=== PATIENT | female | born 1950 | race Caucasian/White ===

== ENCOUNTER → 2017-09-16 | Outpatient (CLI) | payer OTHER ==
[2016-02-01 13:27] VITALS: BP 108/58
[~2017-09-16] MED LIST: NS 100 ML IV 100 ML IV ONE
[2017-09-16 10:59] LABS: CREATININE 0.83 mg/dL (0.55-1.02)
--- NOTE | 2017-09-16 13:23 | CT ---
Indication: Weight loss, smoking history, and COPD Exam: CT chest with contrast. Technique: Axial spiral images were obtained from the level above the clavicles through the adrenals after administration of IV contrast. Automated dose control was utilized. Findings: The thyroid gland is unremarkable. There is moderate calcified plaque throughout the aorta with minimal dilatation of the ascending aorta measuring up to 3.2 cm. There is no dissection. The pu lmonary arteries are well opacified with no filling defects. There is no mediastinal mass or adenopat hy. There are small calcifications scattered in the gallbladder. The adrenals are normal . There is a 5 mm cyst in the right lobe of liver . There are partially visualized aortoiliac stents in place . T here is mild pleural thickening and scarring along the apices. The lungs are hyperinflated with mild linear densities along the lung bases anteriorly and posteriorly. There is a 3 mm subpleural nodule a long the left lower lobe posteriorly on image 54 of series 5. The bones are intact. Impression: 3 mm subpleural nodule left lower lobe . Suggest follow-up in 1 year, if there is no history of under lying neoplasm. Mild hyperinflation is mild biapical pleural thickening and scarring and mild linear scarring along t he lung bases with no acute infiltrate or effusion. Probable cholelithiasis. Moderate atherosclerotic aorta with mild aneurysmal dilatation of the ascending aorta, suggest follow -up to assure stability. Reported By:
== END ==
LOC: RAD 10:32
PROVIDERS: ATTEND Internal Medicine
DX: R63.4 Abnormal weight loss (principal); J43.8 Other emphysema
CPT/HCPCS: 36415; 71260; 82565; 84520; A4222

== ENCOUNTER 2019-06-20 11:24 | Inpatient (IN) ==
[2019-06-20 11:40] VITALS: BMI 20.4
[2019-06-20] MEDS ORDERED: DUONEB 0.5 MG/3 MG (3 mL) NEB ONE ×2 (11:43→12:04)
[2019-06-20] MEDS ORDERED: SOLU-Medrol 125 MG VIAL ONE (11:44)
[2019-06-20] MEDS ORDERED: SOLU-Medrol 125 MG VIAL IVP ONE (12:03)
[2019-06-20] MEDS ORDERED: NS 1000 ML 1,000 ML IV ONE (12:15)
--- NOTE | 2019-06-20 12:24 | DR.SOBA ---
HPI Time Seen Time Seen by Provider: 06/20/19 12:13 Primary Care Physician Primary Care Physician: JERALD AVALOS HPI Comment HPI Comment: pt w COPD. Has been treated for 2 weeks w steroids and ABX, w/o relief. Has nebs and INH at home. Still smokes Complaints Chief Complaint:: PT HAS CCC, SOB FOR 2 WEEKS PT PLACED ON CIPRO AND PREDNISONE ON FRIDAY , PT STATES IS GETTING WORSE, AUDIBLE WHEEZING NOTED ,BR Self Treatment fo Chief Complaint: INHAILERS , Reviewed Nurses Notes Reviewed: Yes Source History Provided: Patient Mode of Arrival Mode of Arrival: Ambulatory Timing Onset of Chief Complaint: 06/02/19 Context Onset:: At Rest History of:: Asthma and COPD; denies CHF Currently on:: Inhaled Bronchodilators and Steroids Modifying Factors Worsens:: Exertion Improves:: Nothing Associated Signs and Symptoms Associated Signs and Symptoms: Wheeze and Cough; denies Fever, Hemoptysis and Chest Pain If Cough Cough: Clear PMH PMH Past Medical History: Yes Past Medical History: COPD Past Medical History Comment: COPD, SVT, Past Surgical History: Yes Past Surgical History Comment: STENTS aorta and iliacs, Family History History of Family Medical Conditions: No Social History Does patient currently use any type of tobacco product: Yes Have you used tobacco products in the last 12 months: Yes Type of Tobacco Use: Cigarettes How many years tobacco product used: 50 Does any household member use tobacco: No Alcohol Use: None Do you use any recreational Drugs:: No Lives With: Family Lives Where: Home infectious screening In the last 2 months have you had wt loss of >10#?: NO Have you had fever, night sweats or hemotysis?: No Have you traveled outside the country in the last 6 months?: No Isolation: Standard ROS Review of Systems Constitutional: negative Chills and Fever ENTM: negative Nose Congestion and Throat Pain Respiratoy: See HPI, Productive Cough, Short of Breath and Wheezing; negative Orthopnea and Hemoptysis Cardiovascular: No Symptoms Reported Gastrointestinal/Abdominal: No Symptoms Reported; negative Nausea and Vomiting Neurological: No Symptoms Reported Musculoskeletal: No Symptoms Reported Integumentary: No Symptoms Reported; negative Rash All Other Systems: Reviewed and Negative PE Vital Signs Vitals: Temperature 97.9 F Pulse Rate 90 Respiratory Rate 28 Blood Pressure 158/58 O2 Sat by Pulse Oximetry 96 General Limitations: No Limitations General Appearance: Alert and In Distress (leaning forward, dyspneic. Able to speak in full sentences) Eyes Eye exam: EOMI; negative Scleral Icterus ENT ENT Exam: Mucous Membranes Moist Neck Neck Exam: Full ROM Chest Chest Inspection: Symmetric Chest Wall Rise Respiratory Respiratory Exam: Bilateral: Wheezing, Upper: Wheezing and Lower: Wheezing Cardiovascular Cardiovascular Exam: Normal Rhythm and Tachycardia Extremities Extremities Exam: Full ROM Neurologic Neurological Exam: Alert Psychiatric Psychiatric Exam: Normal Affect and Normal Mood Skin Skin Exam: Warm and Normal Color MDM Differential Diagnosis Differential Diagnosis: Bronchitis, COPD and Pneumonia ROR Labs Reviewed Laboratory Results Reviewed?: Yes Result Diagrams: 06/20/19 12:15 06/20/19 12:15 Laboratory: WBC 14.0 X10^3/uL (3.6-10.0) H 06/20/19 12:15 RBC 4.50 X10^6/uL (3.5-5.4) 06/20/19 12:15 Hgb 14.4 g/dL (12.0-16.0) 06/20/19 12:15 Hct 42.3 % (36.0-47.0) 06/20/19 12:15 MCV 94.1 fL (80.0-100.0) 06/20/19 12:15 MCH 32.0 pg (27.0-34.0) 06/20/19 12:15 MCHC 34.0 g/dL (33.0-35.0) 06/20/19 12:15 RDW 13.7 % (11.6-16.5) 06/20/19 12:15 Plt Count 320 X10^3/uL (150.0-450.0) 06/20/19 12:15 MPV 7.6 fL (7.4-11.0) 06/20/19 12:15 Neut % (Auto) 87.5 % (42.0-75.0) H 06/20/19 12:15 Lymph % (Auto) 7.8 % (21.0-51.0) L 06/20/19 12:15 [place] % (Auto) 4.5 % (0.0-13.0) 06/20/19 12:15 Eos % (Auto) 0.0 % (0.9-2.9) L 06/20/19 12:15 Baso % (Auto) 0.2 % (0.2-1.0) 06/20/19 12:15 Neut # (Auto) 12.3 x10^3/uL (2.2-4.8) H 06/20/19 12:15 Lymph # (Auto) 1.1 X10^3/uL (1.3-2.9) L 06/20/19 12:15 [place] # (Auto) 0.6 x10^3/uL (0.3-0.8) 06/20/19 12:15 Eos # (Auto) 0.0 x10^3/uL (0.0-0.2) 06/20/19 12:15 Baso # (Auto) 0.0 X10^3/uL (0.0-0.1) 06/20/19 12:15 Absolute Nucleated RBC 0.0 /100WBC 06/20/19 12:15 Sodium 140 mmol/L (136-145) 06/20/19 12:15 Corrected Sodium 141 mmol/L (136-145) 06/20/19 12:15 Potassium 3.5 mmol/L (3.5-5.1) 06/20/19 12:15 Chloride 101 mmol/L (98-107) 06/20/19 12:15 Carbon Dioxide 28.7 mmol/L (21-32) 06/20/19 12:15 BUN 12 mg/dL (7-18) 06/20/19 12:15 Creatinine 0.89 mg/dL (0.55-1.02) 06/20/19 12:15 Est GFR (MDRD) Af Amer > 60 (>60) 06/20/19 12:15 Est GFR (MDRD) Non-Af > 60 (>60) 06/20/19 12:15 Glucose 125 mg/dL (65-99) H 06/20/19 12:15 Calcium 9.1 mg/dL (8.5-10.1) 06/20/19 12:15 Corrected Calcium TNP 06/20/19 12:15 Total Bilirubin 0.50 mg/dL (0.2-1.0) 06/20/19 12:15 AST 31 Units/L (15-37) 06/20/19 12:15 ALT 46 Units/L (12-78) 06/20/19 12:15 Alkaline Phosphatase 68 Units/L (46-116) 06/20/19 12:15 Total Protein 7.3 g/dL (6.4-8.2) 06/20/19 12:15 Albumin 4.0 g/dL (3.4-5.0) 06/20/19 12:15 Globulin 3.3 g/dL (2.5-4.5) 06/20/19 12:15 Albumin/Globulin Ratio 1.2 Ratio (1.1-2.1) 06/20/19 12:15 XRAY XRAY Interpreted by: Self XRAY Findings: COPD nothing acute Opioid Opioid Risk Tool Age (Alexis box if 16-45): No History of Preadolescent Sexual Abuse: No Total: 0 Total Score Risk Category: Low Risk Copyright: William LIEBERMAN predicting aberrant behaviors ADDITIONAL NOTES Additional Notes Additional Notes: pt placed in observation for COPD exacerbation, acute bronchitis
[2019-06-20 12:27] LABS: BASOPHILS % (AUTO) 0.2 % (0.2-1.0); HEMATOCRIT 42.3 % (36.0-47.0); HEMOGLOBIN 14.4 g/dL (12.0-16.0); LYMPHOCYTES # (AUTO) 1.1 X10^3/uL (1.3-2.9); LYMPHOCYTES % (AUTO) 7.8 % (21.0-51.0); MEAN CORPUSCULAR VOLUME 94.1 fL (80.0-100.0); MEAN PLATELET VOLUME 7.6 fL (7.4-11.0); MONOCYTES # (AUTO) 0.6 x10^3/uL (0.3-0.8); MONOCYTES % (AUTO) 4.5 % (0.0-13.0); NEUTROPHILS # (AUTO) 12.3 x10^3/uL (2.2-4.8); NEUTROPHILS % (AUTO) 87.5 % (42.0-75.0); PLATELET COUNT 320 X10^3/uL (150.0-450.0); RED CELL DISTRIBUTION WIDTH 13.7 % (11.6-16.5)
[2019-06-20 12:40] LABS: ALANINE AMINOTRANSFERASE 46 Units/L (12-78); ALKALINE PHOSPHATASE 68 Units/L (46-116); ASPARTATE AMINO TRANSFERASE 31 Units/L (15-37); BLOOD UREA NITROGEN 12 mg/dL (7-18); CALCIUM 9.1 mg/dL (8.5-10.1); CARBON DIOXIDE 28.7 mmol/L (21-32); CHLORIDE 101 mmol/L (98-107); COR NA(FOR HYPERGLY) 141 mmol/L (136-145); CREATININE 0.89 mg/dL (0.55-1.02); SODIUM 140 mmol/L (136-145); TOTAL PROTEIN 7.3 g/dL (6.4-8.2); eGFR NON BLACK RACES > 60 (>60)
[2019-06-20] MEDS ORDERED: NS 1000 ML 1,000 ML ONE (13:09)
[2019-06-20] MEDS ORDERED: LEVAQUIN PREMIX IV 750 MG 750 MG/150 ML BAG IV ONE ×2 (13:30→13:33)
--- NOTE | 2019-06-20 13:31 | RAD ---
HISTORYCCC, SOB FOR 2 WEEKS, AUDIBLE WHEEZINGSTUDYCHEST, PA/LAT ADULTCOMPARISONNone availableFINDINGSThe trachea is midline. The cardiac silhouette is unremarkable . The lungs demonstrate interstitial coarsening, upper lobe predominant increased lucency and hyperexpansion which are consistent with changes associated with COPD.The lungs are clear without focal infiltrate or effusion. The bony thorax is unremarkable.[ ]IMPRESSIONCOPD without acute cardiopulmonary abnormality.Electronically signed by: SAMMY HART (Jun 20, 2019 13:30:27)
[2019-06-20] MEDS: SOLU-Medrol 125 MG VIAL IVP SCH ×2 (14:38→22:00)
[2019-06-20] MEDS: NS 1000 ML 1,000 ML IV SCH ×2 (14:39→22:00)
[2019-06-20] MEDS ORDERED: FORTAZ or TAZICEF VIAL INJ ONE (14:47)
[2019-06-20] MEDS ORDERED: NS 100 ML IV + SPIKE MINIBAG* 100 ML IV ONE (14:48)
[2019-06-20] MEDS: FORTAZ or TAZICEF VIAL INJ 1 G in NS 100 ML IV + SPIKE MINIBAG* 100 ML IV SCH ×3 (14:49→22:00)
[2019-06-20] MEDS ORDERED: K-RIDER 10 MEQ/NS 100 ML 10 MEQ/100 ML BAG IV PRN (15:24)
[2019-06-20] MEDS ORDERED: POTASSIUM CHL 60 MEQ/NS 0.45% 500 ML IV PRN (15:24)
[2019-06-20] MEDS ORDERED: POTASSIUM CHLORIDE LIQ 20 MEQ UDC PO PRN (15:24)
[2019-06-20] MEDS ORDERED: POTASSIUM CHL 40 MEQ/NS 0.45% 500 ML IV PRN (15:24)
[2019-06-20] MEDS ORDERED: MICRO K EXTEN CAP 10 MEQ PO PRN (15:24)
[2019-06-20] MEDS ORDERED: K-DUR TAB 20 MEQ PO ONE (15:38)
[2019-06-20] MEDS: K-DUR TAB 20 MEQ PO PRN (15:39)
[2019-06-20] MEDS: DUONEB 0.5 MG/3 MG (3 mL) NEB SCH ×2 (17:00→20:49)
[2019-06-20] MEDS ORDERED: DUONEB 0.5 MG/3 MG (3 mL) NEB SCH (18:00)
[2019-06-20] MEDS: PULMICORT NEB TX 0.5 MG NEB SCH (20:49)
[2019-06-21] MEDS: DUONEB 0.5 MG/3 MG (3 mL) NEB SCH ×7 (00:40→20:35)
[2019-06-21] MEDS: FORTAZ or TAZICEF VIAL INJ 1 G in NS 100 ML IV + SPIKE MINIBAG* 100 ML IV SCH ×3 (05:07→22:00)
[2019-06-21] MEDS: NS 1000 ML 1,000 ML IV SCH ×2 (05:07→17:27)
[2019-06-21] MEDS: SOLU-Medrol 125 MG VIAL IVP SCH ×3 (05:07→22:00)
[2019-06-21 05:46] LABS: BASOPHILS % (AUTO) 0.1 % (0.2-1.0); HEMATOCRIT 37.2 % (36.0-47.0); HEMOGLOBIN 12.8 g/dL (12.0-16.0); LYMPHOCYTES % (AUTO) 9.1 % (21.0-51.0); MEAN CORPUSCULAR HEMOGLOBIN 32.4 pg (27.0-34.0); MEAN CORPUSCULAR HGB CONC 34.4 g/dL (33.0-35.0); MEAN CORPUSCULAR VOLUME 94.2 fL (80.0-100.0); MEAN PLATELET VOLUME 7.8 fL (7.4-11.0); MONOCYTES # (AUTO) 0.4 x10^3/uL (0.3-0.8); MONOCYTES % (AUTO) 4.1 % (0.0-13.0); NEUTROPHILS # (AUTO) 9.4 x10^3/uL (2.2-4.8); NEUTROPHILS % (AUTO) 86.7 % (42.0-75.0); PLATELET COUNT 258 X10^3/uL (150.0-450.0); RED BLOOD COUNT 3.95 X10^6/uL (3.5-5.4); RED CELL DISTRIBUTION WIDTH 13.8 % (11.6-16.5); WHITE BLOOD COUNT 10.8 X10^3/uL (3.6-10.0)
[2019-06-21 05:56] LABS: ALANINE AMINOTRANSFERASE 46 Units/L (12-78); ALBUMIN 3.2 g/dL (3.4-5.0); ALKALINE PHOSPHATASE 61 Units/L (46-116); ASPARTATE AMINO TRANSFERASE 29 Units/L (15-37); BLOOD UREA NITROGEN 13 mg/dL (7-18); CALCIUM 8.4 mg/dL (8.5-10.1); CHLORIDE 104 mmol/L (98-107); COR NA(FOR HYPERGLY) 139 mmol/L (136-145); CREATININE 0.82 mg/dL (0.55-1.02); SODIUM 138 mmol/L (136-145); TOTAL PROTEIN 6.2 g/dL (6.4-8.2); eGFR NON BLACK RACES > 60 (>60)
[2019-06-21] MEDS: PULMICORT NEB TX 0.5 MG NEB SCH ×2 (08:15→20:35)
[2019-06-21] MEDS: LOVENOX INJ 40 MG SYR SC SCH (08:47)
[2019-06-21] MEDS: K-DUR TAB 20 MEQ PO PRN (08:47)
[2019-06-21] MEDS: LEVAQUIN PREMIX IV 750 MG 750 MG/150 ML BAG IV SCH (08:47)
--- NOTE | 2019-06-21 09:08 | DR.H&P ---
H&P - History & Physical for Day of: H&P Date: 06/20/19 - Chief Complaint Chief Complaint: COUGH, COLD, CONGESTION, SOB - History of Present Illness History of Present Illness: IS A 69 YEAR OLD PATIENT OF OURS WHO PRESENTED TO THE ER WITH COMPLAINTS OF COUGH, COLD, CONGESTION, AND SHORTNESS OF BREATH X TWO WEEKS. SHE REPORTS BEING TREATED WITH CIPRO 500MG PO BID, NEBULIZER TREATMENTS, AND PREDNISONE SINCE 06/14/19. SHE DOES SMOKE CIGARETTES. SHE HAS A PMH OF COPD AND ASTHMA. ON EXAMINATION, THERE IS AUDIBLE WHEEZING NOTED. ON ARRIVAL, VITALS WERE 97.9-111-20-92%RA-154/72. LABS WERE OBTAINED. ABNORMAL LAB VALUES INCLUDE THE FOLLOWING: WBC 14.0, GLUCOSE 125. A SPUTUM CULTURE WAS SET UP. A CHEST XRAY WAS OBTAINED AND REVEALED: COPD WITHOUT ACUTE CARDIOPULMONARY ABNORMALITY. SHE WAS GIVEN A NORMAL SALINE BOLUS, LEVAQUIN 750MG IV X 1, SOLU- MEDROL 125MG IV X 1, AND A DUONEB X 1. SHE WAS ADMITTED TO THE HOSPITAL FOR FURTHER EVALUATION AND TREATMENT OF COPD EXACERBATION WITH ACUTE BRONCHITIS. SHE WAS STARTED ON NORMAL SALINE AT 125ML/HR, LEVAQUIN 750MG IV DAILY, FORTAZ 1G IV DAILY, LOVENOX 40MG SC DAILY, RESPIRATORY TREATEMENTS, AN SOLU-MEDROL 80MG IV Q8H. OTHERWISE, WE PLAN TO FOLLOW UP WITH AM LABS AND CHEST XRAY AND CONTINUE TO MONITOR. - Past Medical History Past Medical History: COPD - Past Surgical History Surgical History: Angioplasty/Stents - Social History Does patient currently use any type of tobacco product: Yes Have you used tobacco products in the last 12 months: Yes Type of Tobacco Use: Cigarettes How many years tobacco product used: 50 Does any household member use tobacco: No Alcohol Use: None Drug Use: None Prescription drug monitoring program results: PDMP was not reviewed - Medications Home Medications: No Known Drug Allergies Allergy (Verified 06/20/19 11:35) CONTINUE taking the following medications albuterol sulfate 1 inh INHALATION PRN PRN 06/20/19 [History] atorvastatin 40 mg PO DAILY 06/20/19 [History] budesonide-formoterol [Symbicort] 1 inh INHALATION BID 06/20/19 [History] ciprofloxacin HCl 500 mg PO BID 06/20/19 [History] nifedipine 30 mg PO DAILY 06/20/19 [History] prednisone 10 mg PO DIRECTED 06/20/19 [History] - Review of Systems Constitutional: No Symptoms Reported Eyes: No Symptoms Reported ENT: No Symptoms Reported Respiratory: See HPI, Cough, Shortness of Breath, SOB with Excertion, Wheezing Cardiovascular: No Symptoms Reported Gastrointestinal: No Symptoms Reported Genitourinary: No Symptoms Reported Musculoskeletal: No Symptoms Reported Skin: No Symptoms Reported Neurological: No Symptoms Reported - Physical Exam Vital Signs: Temperature 97.9 F Pulse Rate [Left Brachial] 74 Pulse Rate 92 Respiratory Rate 18 Blood Pressure [Left Arm] 143/70 Blood Pressure 158/58 O2 Sat by Pulse Oximetry 96 Oriented: Normal Eyes: Normal Ear: Normal Nose: Normal Throat: Normal Respiratory: Wheezes Throughout Cardiovascular: Tachycardia : Normal Auscultation: Bowel Sounds: Normal Palpation: Normal Tenderness: Normal Skin: Normal Musculoskeletal: Normal Psychiatric: Normal Mood Description: Calm Affect: Normal Speech Pattern: Clear - Assessment/Plan (1) COPD exacerbation Status: Acute Plan: ADMIT, NORMAL SALINE AT 125ML/HR, LEVAQUIN 750MG IV DAILY, FORTAZ 1G IV DAILY, LOVENOX 40MG SC DAILY, RESPIRATORY TREATEMENTS, AND SOLU-MEDROL 80MG IV Q8H, CONTINUE TO MONITOR LABS AND CHEST XRAY (2) Acute bronchitis Qualifiers: Bronchitis organism: unspecified organism Qualified Code(s): J20.9 - Acute bronchitis, unspecified Status: Acute - Allergies Allergies/Adverse Reactions: Allergies Allergy/AdvReac Type Severity Reaction Status Date / Time No Known Drug Allergies Allergy Verified 06/20/19 11:35
[2019-06-21 10:26] LABS: ABG ALLEN TEST POS; ABG BASE EXCESS -0.4 mmol/L (-2.0-2.0); ABG HCO3 22.8 mmol/L (22-26)
[2019-06-21] MEDS: DIFLUCAN 200 MG IV PREMIX* 200 MG/100 ML BAG IV SCH (11:46)
[2019-06-21] MEDS ORDERED: ACCUNEB 1.25 MG NEBULE NEB PRN (21:24)
[2019-06-22] MEDS: DUONEB 0.5 MG/3 MG (3 mL) NEB SCH ×6 (00:45→20:50)
[2019-06-22] MEDS: NS 1000 ML 1,000 ML IV SCH ×4 (01:52→23:00)
[2019-06-22] MEDS: SOLU-Medrol 125 MG VIAL IVP SCH ×3 (06:08→22:00)
[2019-06-22] MEDS: FORTAZ or TAZICEF VIAL INJ 1 G in NS 100 ML IV + SPIKE MINIBAG* 100 ML IV SCH ×3 (06:08→22:00)
[2019-06-22 06:30] LABS: BASOPHILS % (AUTO) 0.1 % (0.2-1.0); HEMATOCRIT 38.2 % (36.0-47.0); HEMOGLOBIN 12.9 g/dL (12.0-16.0); LYMPHOCYTES # (AUTO) 0.9 X10^3/uL (1.3-2.9); LYMPHOCYTES % (AUTO) 7.4 % (21.0-51.0); MEAN CORPUSCULAR HGB CONC 33.7 g/dL (33.0-35.0); MEAN CORPUSCULAR VOLUME 94.8 fL (80.0-100.0); MEAN PLATELET VOLUME 7.3 fL (7.4-11.0); MONOCYTES # (AUTO) 0.6 x10^3/uL (0.3-0.8); MONOCYTES % (AUTO) 4.5 % (0.0-13.0); NEUTROPHILS # (AUTO) 11.1 x10^3/uL (2.2-4.8); PLATELET COUNT 295 X10^3/uL (150.0-450.0); RED BLOOD COUNT 4.03 X10^6/uL (3.5-5.4); RED CELL DISTRIBUTION WIDTH 13.3 % (11.6-16.5); WHITE BLOOD COUNT 12.7 X10^3/uL (3.6-10.0)
[2019-06-22 06:39] LABS: ALANINE AMINOTRANSFERASE 43 Units/L (12-78); ALBUMIN 3.1 g/dL (3.4-5.0); ALKALINE PHOSPHATASE 82 Units/L (46-116); ASPARTATE AMINO TRANSFERASE 21 Units/L (15-37); BLOOD UREA NITROGEN 13 mg/dL (7-18); CALCIUM 8.1 mg/dL (8.5-10.1); CARBON DIOXIDE 28.2 mmol/L (21-32); CHLORIDE 106 mmol/L (98-107); COR CA(FOR HYPOALB) 8.8 mg/dL (8.5-10.1); COR NA(FOR HYPERGLY) 143 mmol/L (136-145); CREATININE 0.85 mg/dL (0.55-1.02); SODIUM 141 mmol/L (136-145); TOTAL PROTEIN 5.9 g/dL (6.4-8.2); eGFR NON BLACK RACES > 60 (>60)
--- NOTE | 2019-06-22 07:26 | CT ---
HISTORYCough, shortness of breath, COPDSTUDYCHEST W/O CONTechnique: Axial noncontrast images with coronal and sagittal reformats. Dose reduction procedures were used with mA/kv adjusted for body size. This examination is limited due to the lack of intravenous contrast. The examination was performed in this manner at the sole discretion of the ordering caregiver.[id number] of the mediastinum demonstrated no evidence for med iastinal masses, enlarged mediastinal or enlarged hilar adenopathy. Atherosclerotic change is presen t in the thoracic aorta without significant dilatation. No pleural effusions are identified. No caroline st wall or axillary abnormality is identified. Those portions of the upper abdominal organs visualiz ed were within normal limits to the limitations of an unenhanced examination with the exception of ch olelithiasis. Examination of the lung gan demonstrated hyperinflation to be present. There are s ome changes of centrilobular emphysema present. The previously noted 3 mm left lower lobe pulmonary nodule is unchanged. No new nodules are identified. No alveolar infiltrates, areas of consolidation , masses, bronchiectasis, or peribronchial thickening identified.IMPRESSIONHyperinflation with change s of centrilobular emphysemaStable 3 mm left lower lobe pulmonary noduleCholelithiasisElectronically signed by: RICCI BROWN (Jun 22, 2019 07:24:43)
[2019-06-22] MEDS: PULMICORT NEB TX 0.5 MG NEB SCH ×2 (08:53→20:50)
[2019-06-22] MEDS: LOVENOX INJ 40 MG SYR SC SCH (09:36)
[2019-06-22] MEDS: DIFLUCAN 200 MG IV PREMIX* 200 MG/100 ML BAG IV SCH (09:37)
[2019-06-22] MEDS: LEVAQUIN PREMIX IV 750 MG 750 MG/150 ML BAG IV SCH (09:37)
[2019-06-22] MEDS ORDERED: PLAVIX PO SCH (11:00)
[2019-06-22] MEDS ORDERED: PROCARDIA XL PO SCH (11:00)
[2019-06-22] MEDS ORDERED: LIPITOR TAB 40 MG PO SCH (11:00)
[2019-06-22] MEDS: VALIUM PO SCH ×2 (11:20→22:00)
[2019-06-22] MEDS: THEO-DUR TAB 200 MG PO SCH ×2 (11:20→22:00)
--- NOTE | 2019-06-22 20:04 | PCM.PROG ---
Progress Note - Progress Note for Day of Date of Exam: 06/22/19 - Subjective Subjective: IS BEING TREATED FOR COPD EXACERBATION WITH ACUTE BRONCHITIS. TODAY, SHE IS ALERT AND ORIENTED, LYING IN BED ON MORNING ROUNDS. SHE CONTINUES WITH MODERATE SHORTNESS OF BREATH AND COUGH. ON EXAMINATION, HEART IS REGULAR IN RATE AND RHYTHM. BILATERAL LUNGS ARE NOTED WITH SCATTERED WHEEZING THROUGHOUT. ABDOMEN IS FLAT, SOFT, AND NON-TENDER WITH NORMAL BOWEL SOUNDS NOTED IN ALL QUADRANTS. VITALS THIS MORNING ARE: 99.8-8618-98%-128/60. LABS WERE OBTAINED. ABNORMAL LAB VALUES INCLUDE THE FOLLOWING: WBC 12.7, [id number], CALCIUM 8.1, TOTAL PROTEIN 5.9, ALBUMIN 3.1. SPUTUM CULTURE REPORTS GROWTH OF GRAM NEGATIVE RODS. A CHEST CT WAS OBTAINED THIS MORNING AND REVEALED: Hyperinf lation with changes of centrilobular emphysema. Stable 3 mm left lower lobe pulmonary nodule. Cholelithiasis. SHE IS CURRENTLY RECEIVING IV FORTAZ, IV LEVAQUIN, IV DIFLUCAN, RESPIRATORY TX, LOVENOX 40MG SC DAILY, THE POTASSIUM AND MAGNESIUM PROTOCOLS, AND HOME MEDICATIONS WERE RESUMED. TODAY, WE WILL ADD SAKSHI-DUR 200MG PO Q12H AND VALIUM 5MG PO BID. OTHERWISE, WE WILL CONTINUE WITH CURRENT PLAN OF CARE TODAY. WE PLAN TO FOLLOW UP WITH AM LABS AND CONTINUE TO MONITOR. - Past Medical Family Social History Past Med/Fam/Surg Hx: No changes since H&P Allergies: Allergies No Known Drug Allergies Allergy (Verified 06/20/19 11:35) - Review of Systems ROS: No change since H&P - Vital Signs and I&O's Vital Signs: Temperature 97.9 F Pulse Rate [Right Brachial] 103 Pulse Rate [Left Brachial] 98 Pulse Rate 92 Respiratory Rate 22 Blood Pressure [Right Arm] 179/78 Blood Pressure [Left Arm] 125/60 Blood Pressure 158/58 O2 Sat by Pulse Oximetry 97 Intake and Output: Intake & Output 06/20/19 06/21/19 06/22/19 06/23/19 11:59 11:59 11:59 11:59 Intake Total 1490 / 1490 5296 / 5296 1580 / 1580 Balance 1490 / 1490 5296 / 5296 1580 / 1580 - Physical Exam Oriented: Normal Eyes: Normal Ear: Normal Nose: Normal Throat: Normal Respiratory: Generalized, Wheezes Cardiovascular: Normal : Normal Auscultation: Bowel Sounds: Normal Palpation: Normal Tenderness: Normal Skin: Normal Musculoskeletal: Normal Psychiatric: Normal Mood Description: Calm Affect: Normal Speech Pattern: Clear, Appropriate - Laboratory and Diagnostics Result Diagrams: 06/22/19 05:22 06/22/19 05:22 Labs: 06/20/19 14:56 Sputum - Expectorated Sputum Sputum Culture - Preliminary 06/20/19 14:56 Sputum - Expectorated Sputum - Final Laboratory WBC 12.7 X10^3/uL (3.6-10.0) H 06/22/19 05:22 RBC 4.03 X10^6/uL (3.5-5.4) 06/22/19 05:22 Hgb 12.9 g/dL (12.0-16.0) 06/22/19 05:22 Hct 38.2 % (36.0-47.0) 06/22/19 05:22 MCV 94.8 fL (80.0-100.0) 06/22/19 05:22 MCH 32.0 pg (27.0-34.0) 06/22/19 05:22 MCHC 33.7 g/dL (33.0-35.0) 06/22/19 05:22 RDW 13.3 % (11.6-16.5) 06/22/19 05:22 Plt Count 295 X10^3/uL (150.0-450.0) 06/22/19 05:22 MPV 7.3 fL (7.4-11.0) L 06/22/19 05:22 Neut % (Auto) 88.0 % (42.0-75.0) H 06/22/19 05:22 Lymph % (Auto) 7.4 % (21.0-51.0) L 06/22/19 05:22 [place] % (Auto) 4.5 % (0.0-13.0) 06/22/19 05:22 Eos % (Auto) 0.0 % (0.9-2.9) L 06/22/19 05:22 Baso % (Auto) 0.1 % (0.2-1.0) L 06/22/19 05:22 Neut # (Auto) 11.1 x10^3/uL (2.2-4.8) H 06/22/19 05:22 Lymph # (Auto) 0.9 X10^3/uL (1.3-2.9) L 06/22/19 05:22 [place] # (Auto) 0.6 x10^3/uL (0.3-0.8) 06/22/19 05:22 Eos # (Auto) 0.0 x10^3/uL (0.0-0.2) 06/22/19 05:22 Baso # (Auto) 0.0 X10^3/uL (0.0-0.1) 06/22/19 05:22 Absolute Nucleated RBC 0.0 /100WBC 06/22/19 05:22 Sample Site Rrad 06/21/19 10:20 ABG pH 7.460 (7.35-7.45) H 06/21/19 10:20 ABG pCO2 32.0 mmHg (35.0-45.0) L 06/21/19 10:20 ABG pO2 95.0 mmHg (80.0-100.0) 06/21/19 10:20 ABG HCO3 22.8 mmol/L (22-26) 06/21/19 10:20 ABG O2 Saturation 98.0 % (90-100) 06/21/19 10:20 ABG Base Excess -0.4 mmol/L (-2.0-2.0) 06/21/19 10:20 [place] Test Pos 06/21/19 10:20 A-a Gradient 65.0 mmHg 06/21/19 10:20 FiO2 28.0 06/21/19 10:20 Blood Gas Comments Shahab well- sd 06/21/19 10:20 Sodium 141 mmol/L (136-145) 06/22/19 05:22 Corrected Sodium 143 mmol/L (136-145) 06/22/19 05:22 Potassium 4.3 mmol/L (3.5-5.1) 06/22/19 05:22 Chloride 106 mmol/L (98-107) 06/22/19 05:22 Carbon Dioxide 28.2 mmol/L (21-32) 06/22/19 05:22 BUN 13 mg/dL (7-18) 06/22/19 05:22 Creatinine 0.85 mg/dL (0.55-1.02) 06/22/19 05:22 Est GFR (MDRD) Af Amer > 60 (>60) 06/22/19 05:22 Est GFR (MDRD) Non-Af > 60 (>60) 06/22/19 05:22 Glucose 177 mg/dL (65-99) H 06/22/19 05:22 Calcium 8.1 mg/dL (8.5-10.1) L 06/22/19 05:22 Corrected Calcium 8.8 mg/dL (8.5-10.1) 06/22/19 05:22 Magnesium 2.0 mg/dL (1.7-2.9) 06/20/19 12:15 Total Bilirubin 0.20 mg/dL (0.2-1.0) 06/22/19 05:22 AST 21 Units/L (15-37) 06/22/19 05:22 ALT 43 Units/L (12-78) 06/22/19 05:22 Alkaline Phosphatase 82 Units/L (46-116) 06/22/19 05:22 Total Protein 5.9 g/dL (6.4-8.2) L 06/22/19 05:22 Albumin 3.1 g/dL (3.4-5.0) L 06/22/19 05:22 Globulin 2.8 g/dL (2.5-4.5) 06/22/19 05:22 Albumin/Globulin Ratio 1.1 Ratio (1.1-2.1) 06/22/19 05:22 - Plan (1) COPD exacerbation Status: Acute Plan: NORMAL SALINE AT 125ML/HR, SAKSHI-DUR 200MG PO Q12H, VALIUM 5MG PO BID, LEVAQUIN 750MG IV DAILY, FORTAZ 1G IV DAILY, LOVENOX 40MG SC DAILY, RESPIRATORY TREATEMENTS, AND SOLU-MEDROL 80MG IV Q8H, CONTINUE TO MONITOR LABS AND CHEST XRAY (2) Acute bronchitis Status: Acute Qualifiers: Bronchitis organism: unspecified organism Qualified Code(s): J20.9 - Acute bronchitis, unspecified
[2019-06-22] MEDS: LIPITOR TAB 40 MG PO SCH (21:00)
[2019-06-22] MEDS: PLAVIX PO SCH (21:00)
[2019-06-22] MEDS: PROCARDIA XL PO SCH (22:00)
[2019-06-23] MEDS: DUONEB 0.5 MG/3 MG (3 mL) NEB SCH ×7 (01:04→20:25)
[2019-06-23 05:52] LABS: BASOPHILS % (AUTO) 0 % (0.2-1.0); HEMATOCRIT 37.2 % (36.0-47.0); HEMOGLOBIN 12.8 g/dL (12.0-16.0); LYMPHOCYTES # (AUTO) 0.8 X10^3/uL (1.3-2.9); MEAN CORPUSCULAR HEMOGLOBIN 32.5 pg (27.0-34.0); MEAN CORPUSCULAR HGB CONC 34.5 g/dL (33.0-35.0); MEAN CORPUSCULAR VOLUME 94.4 fL (80.0-100.0); MEAN PLATELET VOLUME 7.4 fL (7.4-11.0); MONOCYTES % (AUTO) 6.5 % (0.0-13.0); NEUTROPHILS # (AUTO) 13.7 x10^3/uL (2.2-4.8); NEUTROPHILS % (AUTO) 88.5 % (42.0-75.0); PLATELET COUNT 305 X10^3/uL (150.0-450.0); RED BLOOD COUNT 3.94 X10^6/uL (3.5-5.4); RED CELL DISTRIBUTION WIDTH 13.6 % (11.6-16.5); WHITE BLOOD COUNT 15.5 X10^3/uL (3.6-10.0)
[2019-06-23] MEDS: FORTAZ or TAZICEF VIAL INJ 1 G in NS 100 ML IV + SPIKE MINIBAG* 100 ML IV SCH ×3 (06:02→21:26)
[2019-06-23] MEDS: SOLU-Medrol 125 MG VIAL IVP SCH (06:03)
[2019-06-23] MEDS: NS 1000 ML 1,000 ML IV SCH ×4 (06:03→21:28)
[2019-06-23 06:09] LABS: ALANINE AMINOTRANSFERASE 46 Units/L (12-78); ALKALINE PHOSPHATASE 99 Units/L (46-116); ASPARTATE AMINO TRANSFERASE 23 Units/L (15-37); BLOOD UREA NITROGEN 12 mg/dL (7-18); CALCIUM 8.3 mg/dL (8.5-10.1); CARBON DIOXIDE 25.8 mmol/L (21-32); CHLORIDE 104 mmol/L (98-107); COR CA(FOR HYPOALB) 9.1 mg/dL (8.5-10.1); COR NA(FOR HYPERGLY) 140 mmol/L (136-145); CREATININE 0.74 mg/dL (0.55-1.02); SODIUM 138 mmol/L (136-145); eGFR NON BLACK RACES > 60 (>60)
[2019-06-23] MEDS: KLOR-CON PO PRN (06:24)
[2019-06-23] MEDS: DIFLUCAN 200 MG IV PREMIX* 200 MG/100 ML BAG IV SCH (09:37)
[2019-06-23] MEDS: LOVENOX INJ 40 MG SYR SC SCH (09:38)
[2019-06-23] MEDS: VALIUM PO SCH ×2 (09:39→21:25)
[2019-06-23] MEDS: THEO-DUR TAB 200 MG PO SCH ×2 (09:39→21:25)
[2019-06-23] MEDS: PULMICORT NEB TX 0.5 MG NEB SCH ×2 (09:52→20:25)
[2019-06-23] MEDS: LEVAQUIN PREMIX IV 750 MG 750 MG/150 ML BAG IV SCH (10:16)
--- NOTE | 2019-06-23 10:57 | RAD ---
HISTORYShortness of breath and coughSTUDYPortable AP chestCOMPARISONJanuary 2019FINDINGSAs before the lungs are hyperinflated and grossly clear with emphysematous changes suggested in the upper lobes. The heart and mediastinum are unremarkable. There is no edema or effusion.IMPRESSIONUnchanged COPD likely related to emphysemaElectronically signed by: LOC MILLER (Jun 23, 2019 10:55:48)
[2019-06-23] MEDS: TORADOL 30 MG VIAL IVP SCH ×2 (12:23→21:21)
[2019-06-23] MEDS: TESSALON PERLES PO SCH ×2 (14:50→21:23)
--- NOTE | 2019-06-23 19:22 | PCM.PROG ---
Progress Note - Progress Note for Day of Date of Exam: 06/23/19 - Subjective Subjective: IS BEING TREATED FOR COPD EXACERBATION WITH ACUTE BRONCHITIS. TODAY, SHE IS ALERT AND ORIENTED, LYING IN BED ON MORNING ROUNDS. SHE CONTINUES WITH SHORTNESS OF BREATH AND COUGH, BUT DOES REPORT SLIGHT IMPROVEMENT IN SYMPTOMS SINCE YESTERDAY. SHE ALSO REPORTS PAIN TO RIB AREA AND BACK WHEN SHE COUGHS. ON EXAMINATION, HEART IS REGULAR IN RATE AND RHYTHM. BILATERAL LUNGS ARE NOTED WITH SCATTERED WHEEZING THROUGHOUT. ABDOMEN IS FLAT, SOFT, AND NON-TENDER WITH NORMAL BOWEL SOUNDS NOTED IN ALL QUADRANTS. VITALS THIS MORNING ARE: 98.0-104-18-98%-183/92. LABS WERE OBTAINED. ABNORMAL LAB VALUES INCLUDE THE FOLLOWING: WBC 15.5, POTASSIUM 3.2, GLUCOSE 190, CALCIUM 8.3, TOTAL PROTEIN 6.0, ALBUMIN 3.0. SPUTUM CULTURE REPORTS GROWTH OF GRAM NEGATIVE RODS. A CHEST XRAY WAS OBTAINED AND REVEALED: Unchanged COPD likely related to emphysema. SHE IS CURRENTLY RECEIVING IV FORTAZ, IV LEVAQUIN, IV DIFLUCAN, RESPIRATORY TX, SAKSHI-DUR Q12H, VALIUM BID, LOVENOX 40MG SC DAILY, THE POTASSIUM AND MAGNESIUM PROTOCOLS, AND HOME MEDICATIONS WERE RESUMED. TODAY, WE WILL ADD TRADOL 30MG IV Q8H AND TESSALON PERLES 200MG PO Q8H. OTHERWISE, WE WILL CONTINUE WITH CURRENT PLAN OF CARE TODAY. WE PLAN TO FOLLOW UP WITH AM LABS AND CONTINUE TO MONITOR. - Past Medical Family Social History Past Med/Fam/Surg Hx: No changes since H&P Allergies: Allergies No Known Drug Allergies Allergy (Verified 06/20/19 11:35) - Review of Systems ROS: No change since H&P - Vital Signs and I&O's Vital Signs: Temperature 98 F Pulse Rate [Right Brachial] 98 Pulse Rate [Left Brachial] 98 Pulse Rate 100 Respiratory Rate 20 Blood Pressure [Right Arm] 142/69 Blood Pressure [Left Arm] 125/60 Blood Pressure 158/58 O2 Sat by Pulse Oximetry 95 Intake and Output: Intake & Output 06/21/19 06/22/19 06/23/19 06/24/19 11:59 11:59 11:59 11:59 Intake Total 1490 / 1490 5296 / 5296 4100 / 4100 1200 / 1200 Balance 1490 / 1490 5296 / 5296 4100 / 4100 1200 / 1200 - Physical Exam Oriented: Normal Eyes: Normal Ear: Normal Nose: Normal Throat: Normal Respiratory: Generalized, Wheezes Cardiovascular: Normal : Normal Auscultation: Bowel Sounds: Normal Tenderness: Normal Skin: Normal Musculoskeletal: Normal Psychiatric: Normal Mood Description: Calm Affect: Normal Speech Pattern: Clear, Appropriate - Laboratory and Diagnostics Result Diagrams: 06/23/19 05:24 06/23/19 05:24 Labs: 06/20/19 14:56 Sputum - Expectorated Sputum Sputum Culture - Preliminary 06/20/19 14:56 Sputum - Expectorated Sputum - Final Laboratory WBC 15.5 X10^3/uL (3.6-10.0) H 06/23/19 05:24 RBC 3.94 X10^6/uL (3.5-5.4) 06/23/19 05:24 Hgb 12.8 g/dL (12.0-16.0) 06/23/19 05:24 Hct 37.2 % (36.0-47.0) 06/23/19 05:24 MCV 94.4 fL (80.0-100.0) 06/23/19 05:24 MCH 32.5 pg (27.0-34.0) 06/23/19 05:24 MCHC 34.5 g/dL (33.0-35.0) 06/23/19 05:24 RDW 13.6 % (11.6-16.5) 06/23/19 05:24 Plt Count 305 X10^3/uL (150.0-450.0) 06/23/19 05:24 MPV 7.4 fL (7.4-11.0) 06/23/19 05:24 Neut % (Auto) 88.5 % (42.0-75.0) H 06/23/19 05:24 Lymph % (Auto) 5.0 % (21.0-51.0) L 06/23/19 05:24 Cass % (Auto) 6.5 % (0.0-13.0) 06/23/19 05:24 Eos % (Auto) 0.0 % (0.9-2.9) L 06/23/19 05:24 Baso % (Auto) 0 % (0.2-1.0) L 06/23/19 05:24 Neut # (Auto) 13.7 x10^3/uL (2.2-4.8) H 06/23/19 05:24 Lymph # (Auto) 0.8 X10^3/uL (1.3-2.9) L 06/23/19 05:24 Cass # (Auto) 1.0 x10^3/uL (0.3-0.8) H 06/23/19 05:24 Eos # (Auto) 0.0 x10^3/uL (0.0-0.2) 06/23/19 05:24 Baso # (Auto) 0.0 X10^3/uL (0.0-0.1) 06/23/19 05:24 Absolute Nucleated RBC 0.1 /100WBC 06/23/19 05:24 Sample Site Rrad 06/21/19 10:20 ABG pH 7.460 (7.35-7.45) H 06/21/19 10:20 ABG pCO2 32.0 mmHg (35.0-45.0) L 06/21/19 10:20 ABG pO2 95.0 mmHg (80.0-100.0) 06/21/19 10:20 ABG HCO3 22.8 mmol/L (22-26) 06/21/19 10:20 ABG O2 Saturation 98.0 % (90-100) 06/21/19 10:20 ABG Base Excess -0.4 mmol/L (-2.0-2.0) 06/21/19 10:20 Eliceo Test Pos 06/21/19 10:20 A-a Gradient 65.0 mmHg 06/21/19 10:20 FiO2 28.0 06/21/19 10:20 Blood Gas Comments Shahab well- sd 06/21/19 10:20 Sodium 138 mmol/L (136-145) 06/23/19 05:24 Corrected Sodium 140 mmol/L (136-145) 06/23/19 05:24 Potassium 3.2 mmol/L (3.5-5.1) L 06/23/19 05:24 Chloride 104 mmol/L (98-107) 06/23/19 05:24 Carbon Dioxide 25.8 mmol/L (21-32) 06/23/19 05:24 BUN 12 mg/dL (7-18) 06/23/19 05:24 Creatinine 0.74 mg/dL (0.55-1.02) 06/23/19 05:24 Est GFR (MDRD) Af Amer > 60 (>60) 06/23/19 05:24 Est GFR (MDRD) Non-Af > 60 (>60) 06/23/19 05:24 Glucose 190 mg/dL (65-99) H 06/23/19 05:24 Calcium 8.3 mg/dL (8.5-10.1) L 06/23/19 05:24 Corrected Calcium 9.1 mg/dL (8.5-10.1) 06/23/19 05:24 Magnesium 2.0 mg/dL (1.7-2.9) 06/20/19 12:15 Total Bilirubin 0.20 mg/dL (0.2-1.0) 06/23/19 05:24 AST 23 Units/L (15-37) 06/23/19 05:24 ALT 46 Units/L (12-78) 06/23/19 05:24 Alkaline Phosphatase 99 Units/L (46-116) 06/23/19 05:24 Total Protein 6.0 g/dL (6.4-8.2) L 06/23/19 05:24 Albumin 3.0 g/dL (3.4-5.0) L 06/23/19 05:24 Globulin 3.0 g/dL (2.5-4.5) 06/23/19 05:24 Albumin/Globulin Ratio 1.0 Ratio (1.1-2.1) L 06/23/19 05:24 - Plan (1) COPD exacerbation Status: Acute Plan: NORMAL SALINE AT 125ML/HR, SAKSHI-DUR 200MG PO Q12H, VALIUM 5MG PO BID, LEVAQUIN 750MG IV DAILY, FORTAZ 1G IV DAILY, LOVENOX 40MG SC DAILY, RESPIRATORY TREATEMENTS, AND SOLU-MEDROL 80MG IV Q8H, CONTINUE TO MONITOR LABS AND CHEST XRAY (2) Acute bronchitis Status: Acute Qualifiers: Bronchitis organism: unspecified organism Qualified Code(s): J20.9 - Acute bronchitis, unspecified
[2019-06-23] MEDS: PLAVIX PO SCH (21:24)
[2019-06-23] MEDS: PROCARDIA XL PO SCH (21:26)
[2019-06-23] MEDS: LIPITOR TAB 40 MG PO SCH (21:28)
[2019-06-24] MEDS: DUONEB 0.5 MG/3 MG (3 mL) NEB SCH ×6 (01:03→20:18)
[2019-06-24] MEDS: TORADOL 30 MG VIAL IVP SCH ×3 (05:45→21:06)
[2019-06-24] MEDS: NS 1000 ML 1,000 ML IV SCH ×4 (05:46→22:21)
[2019-06-24] MEDS: FORTAZ or TAZICEF VIAL INJ 1 G in NS 100 ML IV + SPIKE MINIBAG* 100 ML IV SCH ×3 (05:46→21:09)
[2019-06-24] MEDS: TESSALON PERLES PO SCH ×3 (05:47→21:08)
[2019-06-24 06:04] LABS: ALANINE AMINOTRANSFERASE 46 Units/L (12-78); ALBUMIN 2.9 g/dL (3.4-5.0); ALKALINE PHOSPHATASE 90 Units/L (46-116); ASPARTATE AMINO TRANSFERASE 24 Units/L (15-37); BLOOD UREA NITROGEN 11 mg/dL (7-18); CALCIUM 7.8 mg/dL (8.5-10.1); CARBON DIOXIDE 28.5 mmol/L (21-32); CHLORIDE 105 mmol/L (98-107); COR CA(FOR HYPOALB) 8.7 mg/dL (8.5-10.1); CREATININE 0.64 mg/dL (0.55-1.02); SODIUM 140 mmol/L (136-145); TOTAL PROTEIN 5.7 g/dL (6.4-8.2); eGFR NON BLACK RACES > 60 (>60)
[2019-06-24 06:10] LABS: BASOPHILS % (AUTO) 0 % (0.2-1.0); HEMATOCRIT 38.5 % (36.0-47.0); HEMOGLOBIN 13.1 g/dL (12.0-16.0); LYMPHOCYTES # (AUTO) 1.7 X10^3/uL (1.3-2.9); LYMPHOCYTES % (AUTO) 11.9 % (21.0-51.0); MEAN CORPUSCULAR HEMOGLOBIN 31.8 pg (27.0-34.0); MEAN CORPUSCULAR HGB CONC 34.1 g/dL (33.0-35.0); MEAN CORPUSCULAR VOLUME 93.3 fL (80.0-100.0); MEAN PLATELET VOLUME 6.9 fL (7.4-11.0); MONOCYTES # (AUTO) 1.5 x10^3/uL (0.3-0.8); MONOCYTES % (AUTO) 10.5 % (0.0-13.0); NEUTROPHILS % (AUTO) 77.6 % (42.0-75.0); PLATELET COUNT 330 X10^3/uL (150.0-450.0); RED BLOOD COUNT 4.12 X10^6/uL (3.5-5.4); RED CELL DISTRIBUTION WIDTH 13.5 % (11.6-16.5); WHITE BLOOD COUNT 14.1 X10^3/uL (3.6-10.0)
[2019-06-24] MEDS: KLOR-CON PO PRN (06:22)
[2019-06-24] MEDS: LEVAQUIN PREMIX IV 750 MG 750 MG/150 ML BAG IV SCH (09:43)
[2019-06-24] MEDS: THEO-DUR TAB 200 MG PO SCH ×2 (09:43→21:08)
[2019-06-24] MEDS: VALIUM PO SCH ×2 (09:43→21:08)
[2019-06-24] MEDS: LOVENOX INJ 40 MG SYR SC SCH (09:44)
[2019-06-24] MEDS: DIFLUCAN 200 MG IV PREMIX* 200 MG/100 ML BAG IV SCH (09:44)
[2019-06-24] MEDS: PULMICORT NEB TX 0.5 MG NEB SCH ×2 (09:50→20:18)
[2019-06-24] MEDS: MAGIC MOUTHWASH MT SCH ×3 (14:29→21:09)
--- NOTE | 2019-06-24 14:48 | PCM.PROG ---
Progress Note - Progress Note for Day of Date of Exam: 06/24/19 - Subjective Subjective: IS BEING TREATED FOR COPD EXACERBATION WITH ACUTE BRONCHITIS. TODAY, SHE IS ALERT AND ORIENTED, LYING IN BED ON MORNING ROUNDS. SHE CONTINUES WITH SHORTNESS OF BREATH, COUGH, AND REPORTS A SORE THROAT. SHE ALSO CONTINUES TO REPORT PAIN TO RIB AREA AND BACK WHEN SHE COUGHS. ON EX AMINATION, SHE IS NOTED TO BE TACHYCARDIC. BILATERAL LUNGS ARE NOTED WITH SCATTERED WHEEZING THROUGHOUT. ABDOMEN IS FLAT, SOFT, AND NON-TENDER WITH NORMAL BOWEL SOUNDS NOTED IN ALL QUADRANTS. VITALS THIS MORNING ARE: 97.9-122-20-94%-134/61. LABS WERE OBTAINED. ABNORMAL LAB VALUES INCLUDE THE FOLLOWING: WBC 14.1, POTASSIUM 3.0, GLUCOSE 100, CALCIUM 7.8, TOTAL PROTEIN 5.7, ALBUMIN 2.9. SPUTUM CULTURE REPORTS GROWTH OF ACINETOBACTER LWOFFII. SHE IS CURRENTLY RECEIVING IV FORTAZ, IV LEVAQUIN, IV DIFLUCAN, RESPIRATORY TX, SAKSHI- DUR Q12H, VALIUM BID, LOVENOX 40MG SC DAILY, THE POTASSIUM AND MAGNESIUM PROTOCOLS, TESSALON PERLES, AND TORADOL 30MG IV Q8H. WE WILL CONTINUE WITH CURRENT PLAN OF CARE TODAY AND ADD MAGIC MOUTHWASH QID. OTHERWISE, WE PLAN TO FOLLOW UP WITH AM LABS AND CONTINUE TO MONITOR. - Past Medical Family Social History Past Med/Fam/Surg Hx: No changes since H&P Allergies: Allergies No Known Drug Allergies Allergy (Verified 06/20/19 11:35) - Review of Systems ROS: No change since H&P - Vital Signs and I&O's Vital Signs: Temperature 98.1 F Pulse Rate [Right Brachial] 112 Pulse Rate [Left Brachial] 98 Pulse Rate 119 Respiratory Rate 20 Blood Pressure [Right Arm] 135/53 Blood Pressure [Left Arm] 125/60 Blood Pressure 158/58 O2 Sat by Pulse Oximetry 96 Intake and Output: Intake & Output 06/22/19 06/23/19 06/24/19 06/25/19 11:59 11:59 11:59 11:59 Intake Total 5296 / 5296 4100 / 4100 2870 / 2870 Balance 5296 / 5296 4100 / 4100 2870 / 2870 - Physical Exam Oriented: Normal Eyes: Normal Ear: Normal Nose: Normal Throat: Normal Respiratory: Generalized, Wheezes Cardiovascular: Normal : Normal Auscultation: Bowel Sounds: Normal Tenderness: Normal Skin: Normal Musculoskeletal: Normal Psychiatric: Normal Mood Description: Calm Affect: Normal Speech Pattern: Clear, Appropriate - Laboratory and Diagnostics Result Diagrams: 06/24/19 05:29 06/24/19 08:44 Labs: 06/20/19 14:56 Sputum - Expectorated Sputum Sputum Culture - Final Acinetobacter Lwoffii 06/20/19 14:56 Sputum - Expectorated Sputum - Final Laboratory WBC 14.1 X10^3/uL (3.6-10.0) H 06/24/19 05:29 RBC 4.12 X10^6/uL (3.5-5.4) 06/24/19 05:29 Hgb 13.1 g/dL (12.0-16.0) 06/24/19 05:29 Hct 38.5 % (36.0-47.0) 06/24/19 05:29 MCV 93.3 fL (80.0-100.0) 06/24/19 05:29 MCH 31.8 pg (27.0-34.0) 06/24/19 05:29 MCHC 34.1 g/dL (33.0-35.0) 06/24/19 05:29 RDW 13.5 % (11.6-16.5) 06/24/19 05:29 Plt Count 330 X10^3/uL (150.0-450.0) 06/24/19 05:29 MPV 6.9 fL (7.4-11.0) L 06/24/19 05:29 Neut % (Auto) 77.6 % (42.0-75.0) H 06/24/19 05:29 Lymph % (Auto) 11.9 % (21.0-51.0) L 06/24/19 05:29 [place] % (Auto) 10.5 % (0.0-13.0) 06/24/19 05:29 Eos % (Auto) 0.0 % (0.9-2.9) L 06/24/19 05:29 Baso % (Auto) 0 % (0.2-1.0) L 06/24/19 05:29 Neut # (Auto) 11.0 x10^3/uL (2.2-4.8) H 06/24/19 05:29 Lymph # (Auto) 1.7 X10^3/uL (1.3-2.9) 06/24/19 05:29 [place] # (Auto) 1.5 x10^3/uL (0.3-0.8) H 06/24/19 05:29 Eos # (Auto) 0.0 x10^3/uL (0.0-0.2) 06/24/19 05:29 Baso # (Auto) 0.0 X10^3/uL (0.0-0.1) 06/24/19 05:29 Absolute Nucleated RBC 0.1 /100WBC 06/24/19 05:29 Sample Site Rrad 06/21/19 10:20 ABG pH 7.460 (7.35-7.45) H 06/21/19 10:20 ABG pCO2 32.0 mmHg (35.0-45.0) L 06/21/19 10:20 ABG pO2 95.0 mmHg (80.0-100.0) 06/21/19 10:20 ABG HCO3 22.8 mmol/L (22-26) 06/21/19 10:20 ABG O2 Saturation 98.0 % (90-100) 06/21/19 10:20 ABG Base Excess -0.4 mmol/L (-2.0-2.0) 06/21/19 10:20 Eliceo Test Pos 06/21/19 10:20 A-a Gradient 65.0 mmHg 06/21/19 10:20 FiO2 28.0 06/21/19 10:20 Blood Gas Comments Shahab well- sd 06/21/19 10:20 Sodium 140 mmol/L (136-145) 06/24/19 05:29 Corrected Sodium TNP 06/24/19 05:29 Potassium 3.7 mmol/L (3.5-5.1) 06/24/19 08:44 Chloride 105 mmol/L (98-107) 06/24/19 05:29 Carbon Dioxide 28.5 mmol/L (21-32) 06/24/19 05:29 BUN 11 mg/dL (7-18) 06/24/19 05:29 Creatinine 0.64 mg/dL (0.55-1.02) 06/24/19 05:29 Est GFR (MDRD) Af Amer > 60 (>60) 06/24/19 05:29 Est GFR (MDRD) Non-Af > 60 (>60) 06/24/19 05:29 Glucose 100 mg/dL (65-99) H 06/24/19 05:29 Calcium 7.8 mg/dL (8.5-10.1) L 06/24/19 05:29 Corrected Calcium 8.7 mg/dL (8.5-10.1) 06/24/19 05:29 Magnesium 1.9 mg/dL (1.7-2.9) 06/24/19 05:29 Total Bilirubin 0.20 mg/dL (0.2-1.0) 06/24/19 05:29 AST 24 Units/L (15-37) 06/24/19 05:29 ALT 46 Units/L (12-78) 06/24/19 05:29 Alkaline Phosphatase 90 Units/L (46-116) 06/24/19 05:29 Total Protein 5.7 g/dL (6.4-8.2) L 06/24/19 05:29 Albumin 2.9 g/dL (3.4-5.0) L 06/24/19 05:29 Globulin 2.8 g/dL (2.5-4.5) 06/24/19 05:29 Albumin/Globulin Ratio 1.0 Ratio (1.1-2.1) L 06/24/19 05:29 - Plan (1) COPD exacerbation Status: Acute Plan: NORMAL SALINE AT 125ML/HR, SAKSHI-DUR 200MG PO Q12H, VALIUM 5MG PO BID, LEVAQUIN 750MG IV DAILY, FORTAZ 1G IV DAILY, LOVENOX 40MG SC DAILY, RESPIRATORY TREATEMENTS, AND SOLU-MEDROL 80MG IV Q8H, CONTINUE TO MONITOR LABS AND CHEST XRAY (2) Acute bronchitis Status: Acute Qualifiers: Bronchitis organism: unspecified organism Qualified Code(s): J20.9 - Acute bronchitis, unspecified
[2019-06-24] MEDS: PROCARDIA XL PO SCH (21:07)
[2019-06-24] MEDS: LIPITOR TAB 40 MG PO SCH (21:07)
[2019-06-24] MEDS: PLAVIX PO SCH (21:08)
[2019-06-25] MEDS: DUONEB 0.5 MG/3 MG (3 mL) NEB SCH ×3 (01:39→08:54)
[2019-06-25] MEDS: TORADOL 30 MG VIAL IVP SCH ×2 (05:30→12:05)
[2019-06-25 05:39] LABS: BASOPHILS % (AUTO) 0 % (0.2-1.0); EOSINOPHILS # (AUTO) 0.1 x10^3/uL (0.0-0.2); EOSINOPHILS % (AUTO) 1.1 % (0.9-2.9); HEMATOCRIT 36.7 % (36.0-47.0); HEMOGLOBIN 12.5 g/dL (12.0-16.0); LYMPHOCYTES # (AUTO) 2.2 X10^3/uL (1.3-2.9); LYMPHOCYTES % (AUTO) 18.4 % (21.0-51.0); MEAN CORPUSCULAR HEMOGLOBIN 31.8 pg (27.0-34.0); MEAN CORPUSCULAR HGB CONC 34.2 g/dL (33.0-35.0); MEAN CORPUSCULAR VOLUME 92.9 fL (80.0-100.0); MONOCYTES # (AUTO) 1.1 x10^3/uL (0.3-0.8); MONOCYTES % (AUTO) 9.1 % (0.0-13.0); NEUTROPHILS # (AUTO) 8.4 x10^3/uL (2.2-4.8); NEUTROPHILS % (AUTO) 71.4 % (42.0-75.0); PLATELET COUNT 303 X10^3/uL (150.0-450.0); RED BLOOD COUNT 3.95 X10^6/uL (3.5-5.4); RED CELL DISTRIBUTION WIDTH 13.3 % (11.6-16.5); WHITE BLOOD COUNT 11.8 X10^3/uL (3.6-10.0)
[2019-06-25 05:48] LABS: ALANINE AMINOTRANSFERASE 55 Units/L (12-78); ALBUMIN 2.4 g/dL (3.4-5.0); ALKALINE PHOSPHATASE 69 Units/L (46-116); ASPARTATE AMINO TRANSFERASE 45 Units/L (15-37); BLOOD UREA NITROGEN 12 mg/dL (7-18); CALCIUM 7.6 mg/dL (8.5-10.1); CARBON DIOXIDE 27.3 mmol/L (21-32); CHLORIDE 103 mmol/L (98-107); COR CA(FOR HYPOALB) 8.9 mg/dL (8.5-10.1); CREATININE 0.71 mg/dL (0.55-1.02); SODIUM 138 mmol/L (136-145); eGFR NON BLACK RACES > 60 (>60)
--- NOTE | 2019-06-25 06:23 | RAD ---
HISTORYShortness of breathSTUDYCHEST, 1 [id number]/2020FINDINGSThe heart is within normal limits in size. The leonel are normal. There are some emphysematous changes in the upper lobes and mild interstitial lung changes in the lower lobes. Findings are most consistent with COPD. No alveolar infiltrates or pleural effusions are identified. Bony thorax is unremarkable.IMPRESSIONEmphysematous COPD unchangedElectronically signed by: RICCI BROWN (Jun 25, 2019 06:21:57)
[2019-06-25] MEDS: FORTAZ or TAZICEF VIAL INJ 1 G in NS 100 ML IV + SPIKE MINIBAG* 100 ML IV SCH (06:39)
[2019-06-25] MEDS: NS 1000 ML 1,000 ML IV SCH (06:40)
[2019-06-25] MEDS: TESSALON PERLES PO SCH (06:40)
[2019-06-25 06:46] LABS: BAND NEUTROPHILS % 2 % (0-10); PLATELET MORPHOLOGY COMMENT NORMAL (NORMAL)
[2019-06-25] MEDS: PULMICORT NEB TX 0.5 MG NEB SCH (08:54)
[2019-06-25] MEDS: MAGIC MOUTHWASH MT SCH ×2 (09:06→12:05)
[2019-06-25] MEDS: VALIUM PO SCH (09:06)
[2019-06-25] MEDS: LEVAQUIN PREMIX IV 750 MG 750 MG/150 ML BAG IV SCH (09:06)
[2019-06-25] MEDS: THEO-DUR TAB 200 MG PO SCH (09:06)
[2019-06-25] MEDS: DIFLUCAN 200 MG IV PREMIX* 200 MG/100 ML BAG IV SCH (09:07)
[2019-06-25] MEDS: LOVENOX INJ 40 MG SYR SC SCH (09:07)
[2019-06-25 10:55] VITALS: BP 121/66
== END 2019-06-25 14:05 | disposition home or self-care (01) | DRG 192 ==
LOC: ER 11:29 → MED/SURG 11:29
PROVIDERS: ADMIT Internal Medicine; ATTEND Internal Medicine
DX: J44.0 Chronic obstructive pulmonary disease with (acute) lower respiratory infection; Z72.0 Tobacco use; R06.02 Shortness of breath; J44.1 Chronic obstructive pulmonary disease with (acute) exacerbation; J20.8 Acute bronchitis due to other specified organisms; B96.89 Other specified bacterial agents as the cause of diseases classified elsewhere; Z79.899 Other long term (current) drug therapy; R00.0 Tachycardia, unspecified
CPT/HCPCS: 36415; 36591; 36600; 71010; 71020; 71045; 71046; 71250; 80053; 82803; 83735; 84132; 85025; 87070; 87077; 87186; 87205; 94640; 94669; 94760; 96365; 96367; 96374; 96375; 99284; A4222; G0378; J0713; J1450; J1650; J1885; J1956; J2930; J7030; J7050; J7620; J7626

== ENCOUNTER 2020-04-23 23:58 | Observation (INO) ==
[2020-04-24 00:11] VITALS: BMI 18.8
[2020-04-24] MEDS: NS 1000 ML 1,000 ML IV SCH ×2 (00:15→10:10)
[2020-04-24] MEDS ORDERED: SOLU-Medrol 125 MG VIAL IVP ONE (00:35)
[2020-04-24] MEDS ORDERED: DUONEB 0.5 MG/3 MG (3 mL) NEB ONE ×4 (00:35→04:41)
--- NOTE | 2020-04-24 00:37 | DR.SOBA ---
HPI Time Seen Time Seen by Provider: 04/24/20 00:33 Primary Care Physician Primary Care Physician: HPI Comment HPI Comment: PATITIENT IS 70YR OLD IS FEMALE IN ER WITH INCREASING SOB AND WHEEZING AND COUGH THAT IS WORSE TODAY. NO FEVER. Complaints Chief Complaint Doctors Comments: INCREASING SOB, COUGH AND WHEEZING WORSE TODAY. Chief Complaint:: PT DAUGHTER STATES RICOS COPD AND EMPHYSEMA. SHE STARTED HAVING SOB AND CONGESTION ON FRIDAY IN TODAY IT SEEMS TO BE GETTING WORSE. Self Treatment fo Chief Complaint: ALBUTEROL TREATMENT , BUSEONIDE IN HALER , MUCUS RELIEF AND LEVOFLOXACIN COVID-19 Coronavirus risk:travel/contact w/high risk person: No Has patient experienced Coronavirus symptoms: Yes Coronavirus symptoms experienced: Shortness of Breath Reviewed Nurses Notes Reviewed: Yes Source History Provided: Patient Mode of Arrival Mode of Arrival: Ambulatory Timing Onset of Chief Complaint: 04/24/20 Duration Duration: Days Context Onset:: At Rest PE Risk Factors:: None History of:: COPD Currently on:: Inhaled Bronchodilators Prehospital Care:: Inhaled B2 Modifying Factors Worsens:: Exertion and Lying Flat Improves:: Rest and Sitting Up Associated Signs and Symptoms Associated Signs and Symptoms: Wheeze, Cough and Chest Pain If Chest Pain Quality: Pleuritic Location: Substernal If Cough Cough: Productive and Yellow PMH PMH Past Medical History: Yes Past Medical History: COPD Past Medical History Comment: AND EMPYSEMA Past Surgical History: Yes Surgical History: Angioplasty/Stents Family History History of Family Medical Conditions: No Social History Does patient currently use any type of tobacco product: Yes Type of Tobacco Use: Cigarettes Do you use any recreational Drugs:: No Lives With: Family Lives Where: Home Infectious screening In the last 2 months have you had wt loss of >10#?: NO Have you had fever, night sweats or hemotysis?: No Have you traveled outside the country in the last 6 months?: No Isolation: Standard ROS Review of Systems Constitutional: See HPI, Weakness and Fatigue; negative Fever Eyes: No Symptoms Reported and See HPI; negative Blurred Vision and Diplopia ENTM: See HPI and Nose Congestion; negative Nose Discharge Respiratoy: No Symptoms Reported and See HPI Cardiovascular: See HPI and Chest Pain Gastrointestinal/Abdominal: No Symptoms Reported and See HPI; negative Abdominal Pain, Diarrhea and Vomiting Genitourinary: No Symptoms Reported and See HPI; negative Dysuria, Frequency and Hematuria Neurological: See HPI, Headache and Weakness; negative Dizziness Musculoskeletal: No Symptoms Reported, See HPI, Back Pain and Muscle Pain Integumentary: No Symptoms Reported and See HPI; negative Change in Color, Rash and Juandice Hematologic/Lymphatic: See HPI and Easy Bruising; negative Swollen Glands Endocrine: No Symptoms Reported and See HPI; negative Increased Thirst and Increased Urine Psychiatric: No Symptoms Reported and See HPI All Other Systems: Reviewed and Negative PE Vital Signs Vitals: Temperature 97.8 F Pulse Rate [Left Radial] 90 Pulse Rate 101 Respiratory Rate 20 Blood Pressure [Right Arm] 146/68 Blood Pressure 146/70 O2 Sat by Pulse Oximetry 97 General Limitations: No Limitations General Appearance: Alert and In No Apparent Distress Head Head Exam: Normal Inspection Eyes Eye exam: Normal Appearance, PERRL and EOMI; negative Scleral Icterus and Conjunctival Injection ENT ENT Exam: Normal Exam, Normal Oropharynx, Normal External Ear Exam and TM's Normal Bilaterally Neck Neck Exam: Normal Inspection and Trachea Midline; negative Tenderness and Lymphadenopathy Chest Chest Inspection: Normal Inspection and Symmetric Chest Wall Rise; negative Tenderness Respiratory Respiratory Exam: Normal Lung Sounds Bilat, Accessory Muscle Use and Respiratory Distress; negative Chest Wall Tenderness Respiratory Exam: Bilateral: Wheezing and Bilateral: Rhonchi, Upper: Wheezing and Upper: Rhonchi and Lower: Wheezing and Lower: Rhonchi Cardiovascular Cardiovascular Exam: Regular Rate, Normal Rhythm and Normal Heart Sounds; negative Systolic Murmur and Diastolic Murmur Abdominal Exam Abdominal Exam: Normal Inspection, Normal Bowel Sounds and Soft; negative Tenderness Extremities Extremities Exam: Normal Inspection and Normal Capillary Refill; negative Tenderness and Calf Tenderness Back Back Exam: Normal Inspection; negative (R) CVA Tenderness and (L) CVA Tenderness Neurologic Neurological Exam: Alert and Oriented X3; negative Motor Sensory Deficit Psychiatric Psychiatric Exam: Normal Affect and Normal Mood Skin Skin Exam: Warm, Dry, Intact and Normal Color MDM Additional Information Obtained Additional Information Obtained From: Old Records Differential Diagnosis Differential Diagnosis: Bronchitis, COPD, Dysrhythmia, Hyponatremia, Mycardial Infarction, Pneumonia, Pneumothorax, Respiratory Insufficiency and URI COURSE Treatment Treatment: SEE ORDERS. SOLUMEDROL 125MG, DUONEB 0.5/3MG NEB, ROCEPHIN 1GM IM AND NS 75MG IV. Reevaluation 1st: Improved (SOB IMPROVING.) Consultation Consultation Comments: DISCUSSED PATIENT WITH DR. MARQUES. HE WILL ADMIT PATIENT, Education/Counseling Education/Counseling: Patient Educated On: Diagnosis and Needs for Follow Up ROR Labs Reviewed Laboratory Results Reviewed?: Yes Result Diagrams: 04/26/20 04:21 04/26/20 04:21 Laboratory: 04/24/20 00:53 Blood Blood Culture - Final 04/24/20 00:47 Blood Blood Culture - Final WBC 8.3 X10^3/uL (3.6-10.0) 04/24/20 00:47 RBC 4.18 X10^6/uL (3.5-5.4) 04/24/20 00:47 Hgb 13.8 g/dL (12.0-16.0) 04/24/20 00:47 Hct 39.0 % (36.0-47.0) 04/24/20 00:47 MCV 93.4 fL (80.0-100.0) 04/24/20 00:47 MCH 33.0 pg (27.0-34.0) 04/24/20 00:47 MCHC 35.3 g/dL (33.0-35.0) H 04/24/20 00:47 RDW 13.3 % (11.6-16.5) 04/24/20 00:47 Plt Count 246 X10^3/uL (150.0-450.0) 04/24/20 00:47 MPV 7.7 fL (7.4-11.0) 04/24/20 00:47 Neut % (Auto) 68.2 % (42.0-75.0) 04/24/20 00:47 Lymph % (Auto) 19.5 % (21.0-51.0) L 04/24/20 00:47 [place] % (Auto) 11.5 % (0.0-13.0) 04/24/20 00:47 Eos % (Auto) 0.2 % (0.9-2.9) L 04/24/20 00:47 Baso % (Auto) 0.6 % (0.2-1.0) 04/24/20 00:47 Neut # (Auto) 5.7 x10^3/uL (2.2-4.8) H 04/24/20 00:47 Lymph # (Auto) 1.6 X10^3/uL (1.3-2.9) 04/24/20 00:47 [place] # (Auto) 1.0 x10^3/uL (0.3-0.8) H 04/24/20 00:47 Eos # (Auto) 0.0 x10^3/uL (0.0-0.2) 04/24/20 00:47 Baso # (Auto) 0.1 X10^3/uL (0.0-0.1) 04/24/20 00:47 Absolute Nucleated RBC 0.1 /100WBC 04/24/20 00:47 Sample Site L rad 04/24/20 00:58 ABG pH 7.430 (7.35-7.45) 04/24/20 00:58 ABG pCO2 39.0 mmHg (35.0-45.0) 04/24/20 00:58 ABG pO2 81.0 mmHg (80.0-100.0) 04/24/20 00:58 ABG HCO3 25.9 mmol/L (22-26) 04/24/20 00:58 ABG O2 Saturation 96.0 % (90-100) 04/24/20 00:58 ABG Base Excess 1.5 mmol/L (-2.0-2.0) 04/24/20 00:58 Eliceo Test Poss 04/24/20 00:58 A-a Gradient 20.0 mmHg 04/24/20 00:58 FiO2 21.0 04/24/20 00:58 Blood Gas Comments Shahab well 04/24/20 00:58 Sodium 130 mmol/L (136-145) L 04/24/20 00:47 Corrected Sodium 130 mmol/L (136-145) L 04/24/20 00:47 Potassium 3.7 mmol/L (3.5-5.1) 04/24/20 00:47 Chloride 94 mmol/L (98-107) L 04/24/20 00:47 Carbon Dioxide 25.0 mmol/L (21-32) 04/24/20 00:47 BUN 14 mg/dL (7-18) 04/24/20 00:47 Creatinine 0.80 mg/dL (0.55-1.02) 04/24/20 00:47 Est GFR (MDRD) Af Amer > 60 (>60) 11/23/20 00:47 Est GFR (MDRD) Non-Af > 60 (>60) 04/24/20 00:47 Glucose 116 mg/dL (65-99) H 04/24/20 00:47 Lactic Acid 1.1 mmol/L (0.4-2.0) 04/24/20 00:47 Calcium 9.2 mg/dL (8.5-10.1) 04/24/20 00:47 Corrected Calcium TNP 04/24/20 00:47 Total Bilirubin 0.50 mg/dL (0.2-1.0) 04/24/20 00:47 AST 37 Units/L (15-37) 04/24/20 00:47 ALT 44 Units/L (12-78) 04/24/20 00:47 Alkaline Phosphatase 68 Units/L (46-116) 04/24/20 00:47 Creatine Kinase 396 Units/L (26-192) H 04/24/20 00:47 CK-MB (CK-2) 7.6 ng/mL (0-4.0) H* 04/24/20 00:47 CK/CKMB % Calc 1.9 % (<4) 04/24/20 00:47 Troponin I < 0.02 ng/mL (0-1.5) 04/24/20 00:47 Total Protein 6.9 g/dL (6.4-8.2) 04/24/20 00:47 Albumin 3.9 g/dL (3.4-5.0) 04/24/20 00:47 Globulin 3.0 g/dL (2.5-4.5) 04/24/20 00:47 Albumin/Globulin Ratio 1.3 Ratio (1.1-2.1) 04/24/20 00:47 SARS-CoV-2 (PCR) Negative (NEGATIVE) 04/24/20 07:05 XRAY XRAY Interpreted by: Radiologist (REPORT NOTED AND DISCUSSED WITH PATIENT.) and Self Opioid Opioid Risk Tool Age (Alexis box if 16-45): No History of Preadolescent Sexual Abuse: No Total: 0 Total Score Risk Category: Low Risk Copyright: Thomas predicting aberrant behaviors Diagnosis Discharge Problem: COPD exacerbation, Bronchitis, Acute respiratory distress Instructions Instructions: Shortness of Breath, Adult, Rcju-cb-[place]ico Home Oxygen Use, Adult Hand Washing, Iomd-pj-Yphp Upper Respiratory Infection, Adult, Hcdc-mf-Ysok Chronic Obstructive Pulmonary Disease Exacerbation, Uamp-se-[facility] Risks of Smoking Acute Bronchitis, Adult, Vdwz-qc-Zpcm How to Use a Nebulizer, Adult Cough, Adult Tobacco Use Disorder Forms: Excuse From Work or School Precautions for COVID19 Patient Portal Social Distancing
[2020-04-24] MEDS ORDERED: SOLU-Medrol 125 MG VIAL ONE (00:54)
[2020-04-24 01:05] LABS: ABG ALLEN TEST POSS; ABG BASE EXCESS 1.5 mmol/L (-2.0-2.0); ABG HCO3 25.9 mmol/L (22-26)
--- NOTE | 2020-04-24 01:18 | RAD ---
STUDY: FRONTAL VIEW CHESTCOMPARISON: June 25, 2019HISTORY: PT C/O SOB AND CONGESTIONFINDINGS:Subsegmental atelectasis is noted. Bilateral breast attenuation is again noted.No focal consolidation is seen.The heart size is within normal limits.The mediastinum is unremarkable.There is no evidence of pleural effusion or gross pneumothorax.The trachea is midline.IMPRESSION:1. No focal consolidation is seen.2. The heart size is normal.Electronically signed by: Rick Skinner (Apr 24, 2020 01:16:39)
[2020-04-24 01:19] LABS: BASOPHILS # (AUTO) 0.1 X10^3/uL (0.0-0.1); BASOPHILS % (AUTO) 0.6 % (0.2-1.0); EOSINOPHILS % (AUTO) 0.2 % (0.9-2.9); HEMOGLOBIN 13.8 g/dL (12.0-16.0); LYMPHOCYTES # (AUTO) 1.6 X10^3/uL (1.3-2.9); LYMPHOCYTES % (AUTO) 19.5 % (21.0-51.0); MEAN CORPUSCULAR HGB CONC 35.3 g/dL (33.0-35.0); MEAN CORPUSCULAR VOLUME 93.4 fL (80.0-100.0); MEAN PLATELET VOLUME 7.7 fL (7.4-11.0); MONOCYTES % (AUTO) 11.5 % (0.0-13.0); NEUTROPHILS # (AUTO) 5.7 x10^3/uL (2.2-4.8); NEUTROPHILS % (AUTO) 68.2 % (42.0-75.0); PLATELET COUNT 246 X10^3/uL (150.0-450.0); RED BLOOD COUNT 4.18 X10^6/uL (3.5-5.4); RED CELL DISTRIBUTION WIDTH 13.3 % (11.6-16.5); WHITE BLOOD COUNT 8.3 X10^3/uL (3.6-10.0)
[2020-04-24 01:28] LABS: BLOOD UREA NITROGEN 14 mg/dL (7-18); CALCIUM 9.2 mg/dL (8.5-10.1); CHLORIDE 94 mmol/L (98-107); COR NA(FOR HYPERGLY) 130 mmol/L (136-145); SODIUM 130 mmol/L (136-145); TROPONIN I < 0.02 ng/mL (0-1.5); eGFR NON BLACK RACES > 60 (>60)
[2020-04-24 01:29] LABS: LACTIC ACID 1.1 mmol/L (0.4-2.0)
[2020-04-24 01:52] LABS: ALANINE AMINOTRANSFERASE 44 Units/L (12-78); ALBUMIN 3.9 g/dL (3.4-5.0); ALKALINE PHOSPHATASE 68 Units/L (46-116); ASPARTATE AMINO TRANSFERASE 37 Units/L (15-37); CKMB % 1.9 % (<4); CREATINE KINASE 396 Units/L (26-192); TOTAL PROTEIN 6.9 g/dL (6.4-8.2)
[2020-04-24 01:56] LABS: CREATINE KINASE MB 7.6 ng/mL (0-4.0)
[2020-04-24] MEDS ORDERED: ROCEPHIN VIAL 1 GRAM 1 G in NS 100 ML IV + SPIKE MINIBAG* 100 ML IV ONE (02:35)
[2020-04-24] MEDS ORDERED: ROCEPHIN 1 GRAM IV PREMIX 1 G/50 ML IV.SOLN. IV ONE (02:39)
[2020-04-24] MEDS ORDERED: NS 1000 ML 1,000 ML ONE (03:34)
[2020-04-24] MEDS ORDERED: NS 1000 ML 1,000 ML IV SCH (04:00)
[2020-04-24] MEDS: VSL#3 PO SCH (11:15)
[2020-04-24] MEDS: DUONEB 0.5 MG/3 MG (3 mL) NEB SCH ×4 (12:00→21:17)
[2020-04-24] MEDS ORDERED: DUONEB 0.5 MG/3 MG (3 mL) NEB SCH (12:00)
[2020-04-24 13:45] LABS: CKMB % 1.9 % (<4); CREATINE KINASE 344 Units/L (26-192); TROPONIN I < 0.02 ng/mL (0-1.5)
[2020-04-24 13:51] LABS: CREATINE KINASE MB 6.4 ng/mL (0-4.0)
[2020-04-24] MEDS ORDERED: FORTAZ or TAZICEF VIAL INJ ONE (14:49)
[2020-04-24] MEDS ORDERED: NS 100 ML IV + SPIKE MINIBAG* 100 ML IV ONE (14:50)
[2020-04-24] MEDS: FORTAZ or TAZICEF VIAL INJ 1 G in NS 100 ML IV + SPIKE MINIBAG* 100 ML IV SCH ×2 (15:05→21:06)
[2020-04-24] MEDS: LOVENOX INJ 40 MG SYR SC SCH (15:06)
[2020-04-24] MEDS ORDERED: XANAX PO ONE (16:38)
[2020-04-24] MEDS ORDERED: XANAX ONE (16:43)
[2020-04-24] MEDS ORDERED: NICOTINE PATCH TD ONE (16:43)
[2020-04-24] MEDS: NICOTINE PATCH TD SCH (17:02)
[2020-04-24 18:11] LABS: CKMB % 1.8 % (<4); CREATINE KINASE 342 Units/L (26-192); TROPONIN I < 0.02 ng/mL (0-1.5)
[2020-04-24 18:27] LABS: CREATINE KINASE MB 6.2 ng/mL (0-4.0)
[2020-04-24] MEDS ORDERED: PULMICORT NEB TX 0.5 MG NEB ONE (19:45)
[2020-04-24] MEDS ORDERED: XANAX PO SCH (21:00)
[2020-04-24] MEDS: MUCOMYST (RESPIRATORY USE ONLY) NEB SCH (21:17)
[2020-04-24] MEDS: PULMICORT NEB TX 0.5 MG NEB SCH (21:17)
[2020-04-25] MEDS: DUONEB 0.5 MG/3 MG (3 mL) NEB SCH ×6 (00:40→20:10)
[2020-04-25] MEDS: MUCOMYST (RESPIRATORY USE ONLY) NEB SCH ×6 (00:40→20:10)
[2020-04-25 05:58] LABS: ALANINE AMINOTRANSFERASE 42 Units/L (12-78); ALBUMIN 3.6 g/dL (3.4-5.0); ALKALINE PHOSPHATASE 73 Units/L (46-116); ASPARTATE AMINO TRANSFERASE 32 Units/L (15-37); BLOOD UREA NITROGEN 12 mg/dL (7-18); CALCIUM 8.4 mg/dL (8.5-10.1); CARBON DIOXIDE 24.7 mmol/L (21-32); CHLORIDE 104 mmol/L (98-107); CREATININE 0.77 mg/dL (0.55-1.02); SODIUM 139 mmol/L (136-145); TOTAL PROTEIN 6.3 g/dL (6.4-8.2); eGFR NON BLACK RACES > 60 (>60)
[2020-04-25 06:06] LABS: BASOPHILS # (AUTO) 0.1 X10^3/uL (0.0-0.1); BASOPHILS % (AUTO) 0.6 % (0.2-1.0); EOSINOPHILS # (AUTO) 0.1 x10^3/uL (0.0-0.2); HEMATOCRIT 39.8 % (36.0-47.0); HEMOGLOBIN 13.6 g/dL (12.0-16.0); LYMPHOCYTES # (AUTO) 2.4 X10^3/uL (1.3-2.9); LYMPHOCYTES % (AUTO) 28.4 % (21.0-51.0); MEAN CORPUSCULAR HEMOGLOBIN 32.5 pg (27.0-34.0); MEAN CORPUSCULAR HGB CONC 34.1 g/dL (33.0-35.0); MEAN CORPUSCULAR VOLUME 95.1 fL (80.0-100.0); MEAN PLATELET VOLUME 7.9 fL (7.4-11.0); MONOCYTES # (AUTO) 1.1 x10^3/uL (0.3-0.8); MONOCYTES % (AUTO) 13.1 % (0.0-13.0); NEUTROPHILS # (AUTO) 4.8 x10^3/uL (2.2-4.8); NEUTROPHILS % (AUTO) 56.9 % (42.0-75.0); PLATELET COUNT 249 X10^3/uL (150.0-450.0); RED BLOOD COUNT 4.18 X10^6/uL (3.5-5.4); RED CELL DISTRIBUTION WIDTH 13.4 % (11.6-16.5); WHITE BLOOD COUNT 8.5 X10^3/uL (3.6-10.0)
[2020-04-25] MEDS: FORTAZ or TAZICEF VIAL INJ 1 G in NS 100 ML IV + SPIKE MINIBAG* 100 ML IV SCH ×3 (06:52→21:25)
[2020-04-25 08:42] LABS: BILIRUBIN,URINE NEGATIVE (NEGATIVE); BLOOD/HEMOGLOBIN,URINE NEGATIVE (NEGATIVE); GLUCOSE, URINE NEGATIVE (NEGATIVE); KETONES,URINE NEGATIVE (NEGATIVE); LEUKOCYTE ESTERASE ,URINE NEGATIVE (NEGATIVE); NITRITES,URINE NEGATIVE (NEGATIVE); PROTEIN,URINE NEGATIVE (NEGATIVE); UROBILINOGEN,URINE NORMAL (NORMAL)
[2020-04-25 08:45] LABS: APPEARANCE,URINE CLEAR (CLEAR); COLOR,URINE PALE YELLOW (YELLOW)
[2020-04-25] MEDS: PULMICORT NEB TX 0.5 MG NEB SCH ×2 (09:05→20:10)
[2020-04-25] MEDS: LOVENOX INJ 40 MG SYR SC SCH (09:52)
[2020-04-25] MEDS: NICOTINE PATCH TD SCH (09:53)
[2020-04-25] MEDS: VSL#3 PO SCH (09:53)
[2020-04-25 09:54] LABS: CKMB % 2.2 % (<4); CREATINE KINASE 244 Units/L (26-192); TROPONIN I < 0.02 ng/mL (0-1.5)
[2020-04-25 09:57] LABS: CREATINE KINASE MB 5.4 ng/mL (0-4.0)
--- NOTE | 2020-04-25 10:05 | RAD ---
HISTORYPT C/O SOB AND CONGESTIONSTUDYCHEST, 1 [id number] are hyperinflated suggesting emphysema. But there is no pneumonia or pleural effusion.Heart size is normal.Bones are unremarkable.IMPRESSION1. Emphysema2. No acute findingElectronically signed by: Mango Frankel (Apr 25, 2020 10:04:16)
[2020-04-25] MEDS: SOLU-Medrol 40 MG VIAL IVP SCH ×2 (10:15→19:11)
--- NOTE | 2020-04-25 10:15 | DR.H&P ---
H&P - History & Physical for Day of: H&P Date: 04/24/20 ( ) - Chief Complaint Chief Complaint: COUGH, COLD, CONGESTION, SOB - History of Present Illness History of Present Illness: IS A 69 YEAR OLD PATIENT OF OURS WHO PRESENTED TO THE ER WITH COMPLAINTS OF COUGH, COLD, CONGESTION, AND SHORTNESS OF BREATH X 5 DAYS. SHE REPORTS USING ALBUTEROL NEB TX, BUDESONIDE NEB TX, MUCINEX, AND LEVAQUIN 500MG DAILY SINCE 04/21. SHE DENIES IMPROVEMENT IN SYMPTOMS DESPITE COMPLIANCE WITH MEDICATIONS. SHE HAS A PMH OF COPD, EMPHYSEMA, AND ASTHMA. ON EXAMINATION, THERE IS AUDIBLE WHEEZING NOTED. ON ARRIVAL, VITALS WERE 97.8-100-20-96%-146/70. LABS WERE OBTAINED. ABNORMAL LAB VALUES INCLUDE THE FOLLOWING: SODIUM 130, CHLORIDE 94, GLUCOSE 116, CREATINE KINASE 396, CK-MB 7.6. ABG IS WNL. URINALYSIS WNL. COVID-19 NEGATIVE. BLOOD CULTURES WERE SET UP. A CHEST XRAY WAS OBTAINED AND REVEALED: 1. No focal consolidation is seen. 2. The heart size is normal. EKG REVEALED SINUS RHYTHM WITH HR 81. SHE WAS GIVEN A DUONEB X 2, ROCEPHIN 1G IV X 1, AND SOLU-MEDROL 125MG IV X 1 IN THE ER. SHE WAS ADMITTED TO THE HOSPITAL FOR FURTHER EVALUATION AND TREATMENT OF COPD EXACERBATION WITH ACUTE BRONCHITIS. SHE WAS STARTED ON NORMAL SALINE AT 50 ML/HR , SOLU-MEDROL 80MG IV Q4H, FORTAZ 1G IV Q8H, DUONEBS Q4H, PULMICORT NEBS BID, LOVENOX 40MG SC DAILY, MUCOMYST IN NEB [place], AND XANAX 0.25MG PO HS. OTHERWISE, WE PLAN TO FOLLOW UP WITH AM LABS AND CHEST XRAY AND CONTINUE TO MONITOR. - Past Medical History Past Medical History: Asthma, COPD, Dyslipidemia Additional Medical History: EMPHYSEMA - Past Surgical History Surgical History: AAA Repair, Hysterectomy - Family History Family Medical History: Diabetes Mellitus, Cancer - Social History Does patient currently use any type of tobacco product: No Have you used tobacco products in the last 12 months: Yes Type of Tobacco Use: Cigarettes How many years tobacco product used: 54 Does any household member use tobacco: No Alcohol Use: None Drug Use: None - Medications Home Medications: No Known Drug Allergies Allergy (Verified 06/20/19 11:35) - Review of Systems Constitutional: No Symptoms Reported Eyes: No Symptoms Reported ENT: See HPI, Nose Congestion Respiratory: See HPI, Cough, Shortness of Breath, SOB with Excertion, Sputum, Wheezing Cardiovascular: No Symptoms Reported Gastrointestinal: No Symptoms Reported Genitourinary: No Symptoms Reported Musculoskeletal: No Symptoms Reported Skin: No Symptoms Reported Neurological: No Symptoms Reported - Physical Exam Vital Signs: Temperature 98.2 F Pulse Rate [Left Radial] 95 Pulse Rate 75 Respiratory Rate 20 Blood Pressure [Left Arm] 128/61 Blood Pressure [Right Arm] 146/64 Blood Pressure 146/70 O2 Sat by Pulse Oximetry 98 Oriented: Normal Eyes: Normal Ear: Normal Nose: Normal Throat: Normal Respiratory: Wheezes Throughout Cardiovascular: Normal : Normal Auscultation: Bowel Sounds: Normal Palpation: Normal Tenderness: Normal Skin: Normal Musculoskeletal: Normal Psychiatric: Normal Mood Description: Calm Affect: Normal Speech Pattern: Clear - Assessment/Plan (1) COPD exacerbation Status: Acute Plan: NORMAL SALINE AT 50 ML/HR, SOLU-MEDROL 80MG IV Q4H, FORTAZ 1G IV Q8H, DUONEBS Q4H, PULMICORT NEBS BID, LOVENOX 40MG SC DAILY, MUCOMYST IN NEB [place], AND XANAX 0.25MG PO HS. SUPPLEMENTAL OXYGEN (2) Acute bronchitis Qualifiers: Bronchitis organism: unspecified organism Status: Acute - Allergies Allergies/Adverse Reactions: Allergies Allergy/AdvReac Type Severity Reaction Status Date / Time No Known Drug Allergies Allergy Verified 06/20/19 11:35
--- NOTE | 2020-04-25 11:22 | PCM.PROG ---
Progress Note - Progress Note for Day of Date of Exam: 04/25/20 - Subjective Subjective: IS BEING TREATED FOR COPD EXACERBATION AND ACUTE BRONCHITIS. TODAY, SHE IS ALERT AND ORIENTED, LYING IN BED ON MORNING ROUNDS. SHE CONTINUES WITH COMPLAINTS OF COUGH AND SHORTNESS OF BREATH TODAY. ON EXAMINATION, HEART IS REGULAR IN RATE AND RHYTYHM. BILATERAL LUNGS ARE NOTED WI TH SCATTERED WHEEZING THROUGHOUT. ABDOMEN IS ROUND, SOFT, AND NON-TENDER WITH NORMAL BOWEL SOUNDS NOTED IN ALL QUADRANTS. HER VITALS THIS MORNING ARE: 98.2-95-20-98%-128/61. LABS WERE OBTAINED. ABNORMAL LAB VALUES INCLUDE THE FOLLOWING: SODIUM 130, CHLORIDE 94, GLUCOSE 116, CREATINE KINASE 396, CK-MB 7.6. BLOOD AND SPUTUM CULTURES ARE PENDING. A CHEST XRAY WAS OBTAINED AND REVEALED: Lungs are hyperinflated suggesting emphysema. But there is no pneumonia or pleural effusion. Heart size is normal. Bones are unremarkable. SHE IS CURRENTLY RECEIVING NORMAL SALINE AT 50 ML/HR, SOLU-MEDROL 80MG IV Q4H, FORTAZ 1G IV Q8H, DUONEBS Q4H, PULMICORT NEBS BID, LOVENOX 40MG SC DAILY, MUCOMYST IN NEB [place], AND XANAX 0.25MG PO HS. WE WILL CONTINUE WITH CURRENT PLAN OF CARE TODAY. OTHERWISE, WE PLAN TO FOLLOW UP WITH AM LABS AND CHEST XRAY AND CONTINUE TO MONITOR. - Past Medical Family Social History Past Med/Fam/Surg Hx: No changes since H&P Allergies: Allergies No Known Drug Allergies Allergy (Verified 06/20/19 11:35) - Review of Systems ROS: No change since H&P - Vital Signs and I&O's Vital Signs: Temperature 98.2 F Pulse Rate [Left Radial] 95 Pulse Rate 75 Respiratory Rate 20 Blood Pressure [Left Arm] 128/61 Blood Pressure [Right Arm] 146/64 Blood Pressure 146/70 O2 Sat by Pulse Oximetry 98 Intake and Output: Intake & Output 04/22/20 04/23/20 04/24/20 04/25/20 11:59 11:59 11:59 11:59 Intake Total 2430 / 2430 Output Total Balance 2429 / 2429 - Physical Exam Oriented: Normal Eyes: Normal Ear: Normal Nose: Normal Throat: Normal Respiratory: Generalized, Wheezes Cardiovascular: Normal : Normal Auscultation: Bowel Sounds: Normal Palpation: Normal Tenderness: Normal Skin: Normal Musculoskeletal: Normal Psychiatric: Normal Mood Description: Calm Affect: Normal Speech Pattern: Clear - Laboratory and Diagnostics Result Diagrams: 04/25/20 04:36 04/25/20 04:36 Labs: Laboratory WBC 8.5 X10^3/uL (3.6-10.0) 04/25/20 04:36 RBC 4.18 X10^6/uL (3.5-5.4) 04/25/20 04:36 Hgb 13.6 g/dL (12.0-16.0) 04/25/20 04:36 Hct 39.8 % (36.0-47.0) 04/25/20 04:36 MCV 95.1 fL (80.0-100.0) 04/25/20 04:36 MCH 32.5 pg (27.0-34.0) 04/25/20 04:36 MCHC 34.1 g/dL (33.0-35.0) 04/25/20 04:36 RDW 13.4 % (11.6-16.5) 04/25/20 04:36 Plt Count 249 X10^3/uL (150.0-450.0) 04/25/20 04:36 MPV 7.9 fL (7.4-11.0) 04/25/20 04:36 Neut % (Auto) 56.9 % (42.0-75.0) 04/25/20 04:36 Lymph % (Auto) 28.4 % (21.0-51.0) 04/25/20 04:36 Bullock % (Auto) 13.1 % (0.0-13.0) H 04/25/20 04:36 Eos % (Auto) 1.0 % (0.9-2.9) 04/25/20 04:36 Baso % (Auto) 0.6 % (0.2-1.0) 04/25/20 04:36 Neut # (Auto) 4.8 x10^3/uL (2.2-4.8) 04/25/20 04:36 Lymph # (Auto) 2.4 X10^3/uL (1.3-2.9) 04/25/20 04:36 Bullock # (Auto) 1.1 x10^3/uL (0.3-0.8) H 04/25/20 04:36 Eos # (Auto) 0.1 x10^3/uL (0.0-0.2) 04/25/20 04:36 Baso # (Auto) 0.1 X10^3/uL (0.0-0.1) 04/25/20 04:36 Absolute Nucleated RBC 0.0 /100WBC 04/25/20 04:36 Sample Site L rad 04/24/20 00:58 ABG pH 7.430 (7.35-7.45) 04/24/20 00:58 ABG pCO2 39.0 mmHg (35.0-45.0) 04/24/20 00:58 ABG pO2 81.0 mmHg (80.0-100.0) 04/24/20 00:58 ABG HCO3 25.9 mmol/L (22-26) 04/24/20 00:58 ABG O2 Saturation 96.0 % (90-100) 04/24/20 00:58 ABG Base Excess 1.5 mmol/L (-2.0-2.0) 04/24/20 00:58 [place]ice[place] Test Poss 04/24/20 00:58 A-a Gradient 20.0 mmHg 04/24/20 00:58 FiO2 21.0 04/24/20 00:58 Blood Gas Comments Shah[place] well 04/24/20 00:58 Sodium 139 mmol/L (136-145) 04/25/20 04:36 Corrected Sodium TNP 04/25/20 04:36 Potassium 3.5 mmol/L (3.5-5.1) 04/25/20 04:36 Chloride 104 mmol/L (98-107) 04/25/20 04:36 Carbon Dioxide 24.7 mmol/L (21-32) 04/25/20 04:36 BUN 12 mg/dL (7-18) 04/25/20 04:36 Creatinine 0.77 mg/dL (0.55-1.02) 04/25/20 04:36 Est GFR (MDRD) Af Amer > 60 (>60) 04/25/20 04:36 Est GFR (MDRD) Non-Af > 60 (>60) 04/25/20 04:36 Glucose 102 mg/dL (65-99) H 04/25/20 04:36 Lactic Acid 1.1 mmol/L (0.4-2.0) 04/24/20 00:47 Calcium 8.4 mg/dL (8.5-10.1) L 04/25/20 04:36 Corrected Calcium TNP 04/25/20 04:36 Total Bilirubin 0.40 mg/dL (0.2-1.0) 04/25/20 04:36 AST 32 Units/L (15-37) 04/25/20 04:36 ALT 42 Units/L (12-78) 04/25/20 04:36 Alkaline Phosphatase 73 Units/L (46-116) 04/25/20 04:36 Creatine Kinase 244 Units/L (26-192) H 04/25/20 08:57 CK-MB (CK-2) 5.4 ng/mL (0-4.0) H* 04/25/20 08:57 CK/CKMB % Calc 2.2 % (<4) 04/25/20 08:57 Troponin I < 0.02 ng/mL (0-1.5) 04/25/20 08:57 Total Protein 6.3 g/dL (6.4-8.2) L 04/25/20 04:36 Albumin 3.6 g/dL (3.4-5.0) 04/25/20 04:36 Globulin 2.7 g/dL (2.5-4.5) 04/25/20 04:36 Albumin/Globulin Ratio 1.3 Ratio (1.1-2.1) 04/25/20 04:36 Specimen Type Clean catch urine 04/25/20 08:05 Urine Color Pale yellow (YELLOW) 04/25/20 08:05 Urine Appearance Clear (CLEAR) 04/25/20 08:05 Urine pH 7.0 (5.0 - 8.0) 04/25/20 08:05 Ur Specific [place] 1.015 (1.000-1.030) 04/25/20 08:05 Urine Protein Negative (NEGATIVE) 04/25/20 08:05 Urine Glucose (UA) Negative (NEGATIVE) 04/25/20 08:05 Urine Ketones Negative (NEGATIVE) 04/25/20 08:05 Urine Occult Blood Negative (NEGATIVE) 04/25/20 08:05 Urine Nitrite Negative (NEGATIVE) 04/25/20 08:05 Urine Bilirubin Negative (NEGATIVE) 04/25/20 08:05 Urine Urobilinogen Normal (NORMAL) 04/25/20 08:05 Ur Leukocyte Esterase Negative (NEGATIVE) 04/25/20 08:05 SARS-CoV-2 (PCR) Negative (NEGATIVE) 04/24/20 07:05 - Plan (1) COPD exacerbation Status: Acute Plan: NORMAL SALINE AT 50 ML/HR, SOLU-MEDROL 80MG IV Q4H, FORTAZ 1G IV Q8H, DUO NEBS Q4H, PULMICORT NEBS BID, LOVENOX 40MG SC DAILY, MUCOMYST IN NEB [place], AND XANAX 0.25MG PO HS. SUPPLEMENTAL OXYGEN (2) Acute bronchitis Status: Acute Qualifiers: Bronchitis organism: unspecified organism
[2020-04-25] MEDS ORDERED: MORPHINE SULFATE INJ 2 MG INJ IVP PRN (11:26)
[2020-04-25] MEDS: XANAX PO SCH ×2 (12:19→20:22)
[2020-04-25] MEDS: NS 1000 ML 1,000 ML IV SCH (12:19)
[2020-04-26] MEDS ORDERED: ROBITUSSIN DM PO PRN (00:11)
[2020-04-26] MEDS ORDERED: TUSSIONEX PENNKINETIC SUSP PO PRN (00:11)
[2020-04-26] MEDS ORDERED: ROBITUSSIN DM ONE (00:14)
[2020-04-26] MEDS: NS 1000 ML 1,000 ML IV SCH ×2 (00:21→00:43)
[2020-04-26] MEDS: SOLU-Medrol 40 MG VIAL IVP SCH ×2 (00:21→11:12)
[2020-04-26] MEDS: MUCOMYST (RESPIRATORY USE ONLY) NEB SCH ×3 (01:25→09:15)
[2020-04-26] MEDS: DUONEB 0.5 MG/3 MG (3 mL) NEB SCH ×3 (01:25→09:15)
[2020-04-26 04:45] VITALS: BP 139/68
[2020-04-26] MEDS: FORTAZ or TAZICEF VIAL INJ 1 G in NS 100 ML IV + SPIKE MINIBAG* 100 ML IV SCH (05:11)
[2020-04-26 05:37] LABS: BASOPHILS % (AUTO) 0.1 % (0.2-1.0); HEMATOCRIT 37.8 % (36.0-47.0); HEMOGLOBIN 13.1 g/dL (12.0-16.0); LYMPHOCYTES # (AUTO) 0.8 X10^3/uL (1.3-2.9); LYMPHOCYTES % (AUTO) 9.8 % (21.0-51.0); MEAN CORPUSCULAR HEMOGLOBIN 32.9 pg (27.0-34.0); MEAN CORPUSCULAR HGB CONC 34.7 g/dL (33.0-35.0); MEAN CORPUSCULAR VOLUME 94.9 fL (80.0-100.0); MEAN PLATELET VOLUME 8.1 fL (7.4-11.0); MONOCYTES # (AUTO) 0.2 x10^3/uL (0.3-0.8); NEUTROPHILS # (AUTO) 6.8 x10^3/uL (2.2-4.8); NEUTROPHILS % (AUTO) 88.1 % (42.0-75.0); PLATELET COUNT 226 X10^3/uL (150.0-450.0); RED BLOOD COUNT 3.99 X10^6/uL (3.5-5.4); RED CELL DISTRIBUTION WIDTH 13.3 % (11.6-16.5); WHITE BLOOD COUNT 7.7 X10^3/uL (3.6-10.0)
--- NOTE | 2020-04-26 06:22 | RAD ---
HISTORYShortness of breathSTUDYChest AP [id number] heart is within normal limits in size. The leonel are normal. The aorta is calcified. The lungs are hyperinflated consistent with COPD. No acute alveolar infiltrates or pleural effusions are identified. Bony thorax is unremarkable.IMPRESSIONLungs hyperinflated but clear. Consistent with COPD in the appropriate clinical settingElectronically signed by: RICCI BROWN (Apr 26, 2020 06:20:49)
[2020-04-26 06:29] LABS: ALANINE AMINOTRANSFERASE 37 Units/L (12-78); ALBUMIN 3.4 g/dL (3.4-5.0); ALKALINE PHOSPHATASE 83 Units/L (46-116); ASPARTATE AMINO TRANSFERASE 23 Units/L (15-37); BLOOD UREA NITROGEN 11 mg/dL (7-18); CALCIUM 8.7 mg/dL (8.5-10.1); CARBON DIOXIDE 26.6 mmol/L (21-32); CHLORIDE 105 mmol/L (98-107); COR NA(FOR HYPERGLY) 142 mmol/L (136-145); CREATININE 0.65 mg/dL (0.55-1.02); SODIUM 141 mmol/L (136-145); eGFR NON BLACK RACES > 60 (>60)
[2020-04-26] MEDS: PULMICORT NEB TX 0.5 MG NEB SCH (09:15)
[2020-04-26] MEDS: LOVENOX INJ 40 MG SYR SC SCH (10:57)
[2020-04-26] MEDS: NICOTINE PATCH TD SCH (10:58)
[2020-04-26] MEDS: VSL#3 PO SCH (10:58)
[2020-04-26] MEDS: XANAX PO SCH (11:12)
== END 2020-04-26 11:30 | disposition home or self-care (01) ==
LOC: MED/SURG 23:58 → ER 23:58 → MED/SURG 04-24 09:20
PROVIDERS: ADMIT Internal Medicine; ATTEND Internal Medicine
DX: Z20.828 Contact with and (suspected) exposure to other viral communicable diseases; J44.1 Chronic obstructive pulmonary disease with (acute) exacerbation; J20.8 Acute bronchitis due to other specified organisms; R94.31 Abnormal electrocardiogram [ECG] [EKG]; Z79.899 Other long term (current) drug therapy; J44.0 Chronic obstructive pulmonary disease with (acute) lower respiratory infection